=== PATIENT | female | born 1945 | race Caucasian/White ===

== ENCOUNTER 2024-01-08 12:53 | Outpatient (RCR) | payer OTHER, SELFPAY | END 2024-01-08 23:59 | disposition home or self-care (01) | LOC: RPT 12:53 | PROVIDERS: ATTENDING PHYSICIAN Neurological Surgery; FAMILY PHYSICIAN Family Medicine | DX: M53.3 Sacrococcygeal disorders, not elsewhere classified (principal); Z73.6 Limitation of activities due to disability | CPT/HCPCS: 97110; 97112; 97162 ==

== ENCOUNTER 2024-01-09 14:15 | Emergency (ER) | payer OTHER, SELFPAY ==
[2024-01-09 14:22] VITALS: BMI 31.1
[2024-01-09 14:24] VITALS: BP 92/56
--- NOTE | 2024-01-09 15:00 | ED.GENMED ---
History of Present Illness
General
Chief Complaint: Blood Pressure Problem
Source: patient and family (Daughter)
Exam Limitations: none
Time Seen by Provider: 01/09/24 14:33
Nursing documentation reviewed up to this point in time: agreed with
Travel History
Have you had any contact with someone who has COVID-19?: No
Do you have any symptoms of coronavirus? Fever > 100 degrees, chills, cough, shortness of breath, sore throat, loss of taste or smell, muscle aches, or headache?: No
History of Present Illness
History of Present Illness:
The patient is a 78-year-old female with a past medical history of atrial fibrillation on Eliquis who reports that she dropped a scissor onto her right foot about an hour prior to arrival. Patient reports she last took Eliquis this morning.
Patient reports she had squirting blood coming up from her right foot. She describes a large amount of bleeding at home. Her family brought her to urgent care where she had a suture placed to control the bleeding as well as a pressure dressing.
At urgent care, she dropped her blood pressure and was brought by ambulance to the ED. Patient reports that in the ambulance, she felt nauseous and passed out. Patient reports she still feels nauseous but denies any chest pain and shortness of
breath. Patient reports soreness of the top of her right foot, where the wound is.
Past History
Past History
ED Past Medical History: Arrthythmia (Atrial fib), HTN, Hypercholesterolemia and Hypothyroidism
ED Past Surgical History: Appendectomy, Cholecystectomy and Gynecological (Hysterectomy)
Social History
Tobacco: Non-smoker
Alcohol: Occasional
Drug: None
Personal:
Living: alone
Employment: Other
Family History
Family History: Other
Review of Systems
Review of Systems
Allergies reviewed?: Yes
All Other Systems: ROS reviewed and negative except as documented in HPI and ROS
Constitutional: Reports no symptoms
EENT: Reports no symptoms
Respiratory: Reports no symptoms
Cardiac: Reports syncope
ABD/GI: Reports nausea and diarrhea
: Reports no symptoms
Musculoskeletal: Reports muscle stiffness
Skin: Reports other
Neurological: Reports no symptoms
Endocrine: Reports no symptoms
Hematologic/Lymphatic: Reports no symptoms
Psychiatric: Reports no symptoms
Phy Exam
Physical Exam
Physical Exam:
Physical Exam
General: no apparent distress, not acutely ill
Neck: supple.
Heart: s1/s2 regular rate and rhythm,
Lungs: no acute respiratory distress. clear bilaterally
Abdomen: Soft, nontender
Neuro: alert and oriented. no focal neurological deficits
Skin: 1 cm laceration at top of right foot with a suture approximating wound. Bleeding well-controlled. Underlying hematoma
Psychiatric: well kept. interactive and cooperative
Extremities: Mild soft tissue tenderness dorsal aspect of right foot in the area of wound with underlying hematoma. Strong pulses of right foot. Good sensation in right lower extremity. No other areas of injury
Course
Orders/Labs/Results
Orders:
Orders
01/09/24 15:10
Electrocardiogram (*1) Urgent
Reason for Study: Fatigue / Weakness
EKG- Treatment ONCE
0.9% Sodium Chloride 1000 ml [Nss] 1,000 ml IV BOLUS
01/09/24 15:14
Basic Metabolic Panel Urgent
Complete Blood Count/With Diff Urgent
01/09/24 15:30
Tetanus/Diphth/Acelpertussis [Adacel] 0.5 ml IM .ONCE ONE
01/09/24 15:31
Ondansetron Injectable [Zofran] 4 mg IV NOW STA
01/09/24 15:34
Foot, Right 3 View [CR Foot - Right Min 3 Views] Urgent
Comment:
Reason For Exam: impalement
01/09/24 16:59
Type+Screen Urgent
BBK Wristband Number:
Comprehensive Metabolic Panel Urgent
Abnormal Lab Results
01/09/24
15:14
WBC 17.1 H 10^3/uL
(4.8-10.8)
RBC 3.35 L 10^6/uL
(4.20-5.40)
Hgb 10.7 L g/dL
(12.0-16.0)
Hct 30.3 L %
(37.0-47.0)
MCH 31.9 H pg
(27.0-31.0)
Abs Immat Gran (auto) 0.2 H 10^3/uL
(0-0.05)
Absolute Neuts (auto) 7.1 H 10^3/uL
(1.4-6.5)
Absolute Lymphs (auto) 8.7 H 10^3/uL
(1.2-3.4)
Absolute Monos (auto) 1.0 H 10^3/uL
(0.1-0.6)
Immature Gran % 0.9 H %
(0-0.5)
Neutrophils % 41.1 L %
(42.2-75.2)
Sodium 134 L mmol/L
(135-145)
Chloride 108 H mmol/L
(98-107)
Carbon Dioxide 13 L* mmol/L
(22-30)
BUN 36 H mg/dl
(7-17)
Creatinine 2.0 H mg/dL
(0.6-1.0)
Glucose 228 H mg/dl
(70-99)
01/09/24 16:14
Vital Signs
Initial and Last Documented VS:
Initial Vital Signs
Temp Pulse Resp BP Pulse Ox
97.5 F 70 28 92/56 100
01/09/24 14:24 01/09/24 14:24 01/09/24 14:24 01/09/24 14:24 01/09/24 14:24
Last Documented Vital Signs
Temp Pulse Resp BP Pulse Ox
97.5 F 70 28 92/56 100
01/09/24 14:24 01/09/24 14:24 01/09/24 14:24 01/09/24 14:24 01/09/24 14:24
MDM/Problems Addressed
Differential Diagnosis Includes:
Vasovagal episode, acute blood loss, cardiac arrhythmia
MDM/Problems Addressed:
Patient presents with acute hypotension and a syncopal episode after suffering bleeding from a right foot wound
Chronic conditions affecting care:
Given patient has A-fib is on Eliquis, she is at increased risk of bleeding
Acute Exacerbation and/or Progression of Chronic Illness: Arrhythmia
*Radiology
Radiology exam reviewed: preliminary read by ED provider (No acute fracture. Right foot x-ray x-ray reviewed by me) and radiology read reviewed
*Pulse Oximetry
Patient hypoxic: no
*EKG
Interpreted by ED Provider?: Yes
Interpretation: abnormal
Comparison EKG: no changes
Rate: normal
Rhythm: sinus
[place]: left axis deviation
Interval: normal interval
QRS Pattern: left bundle branch block
Ischemia: non-specific ST changes
*[employer] Interpretation
Rate: normal
Interpretation: normal
Rhythm: sinus
*Critical Care Note
Total Time (30-74mins, 75-104mins- exclusive of procedures): Not Applicable
Data Reviewed
Review of Other/Old Records Reveals: Testing (Cardiac echo reviewed from 05/2022 which showed normal EF)
Patient Management
Social determinants of health affecting care: Living situation and Strong social support
Update Note
Update Note:
Patient given IV fluids and feels better. Nausea treated with Zofran. I suspect patient's syncopal episode was related to blood loss and vasovagal reaction. Patient has had no chest pain or shortness of breath. Family would like to take patient
home and will stay with her tonight. Patient will limit weightbearing on right foot.
ED Attending Note
-
Portions of this chart may have been created with voice recognition software.� Occasional wrong word or��sound alike� substitutions may have occurred due to the inherent limitations of voice recognition software.
Discharge Plan
Departure
Patient Disposition: Home (Routine Discharge)
Date of Disposition: 01/09/24
Time of Disposition: 17:19
Patient with high blood pressure during this ER visit?: No
Condition: Good
Covid-19: Not Applicable
Discharge Problem:
Acute blood loss anemia, Laceration of foot, right, Syncope
Instructions: Laceration Repair With Stitches ED, Fainting, Adult ED
Prescriptions:
No Action
Eliquis 5 MG tablet
5 mg PO BID Qty: 60 11RF
simvastatin 40 MG tablet
40 mg PO Q48H
escitalopram oxalate 20 MG tablet
30 mg PO HS
levothyroxine 100 mcg Tablet
100 mcg PO DAILY
spironolactone 50 mg Tablet
50 mg PO DAILY
diltiazem HCl 120 mg Capsule,Extended Release 24 Hr
120 mg PO HS
sodium bicarbonate 650 mg Tablet
650 mg PO BID
hydralazine 50 mg Tablet
50 mg PO BID
acetaminophen [Tylenol] 325 mg Tablet
650 mg PO DAILYPRN PRN (Reason: mild pain)
olmesartan 20 mg Tablet
20 mg PO DAILY
Visbiome 112.5 billion cell Capsule
1 cap PO Q48H
dofetilide [Tikosyn] 125 mcg capsule
125 mcg PO BID
Referrals:
Tisha Alvarenga MD [Family Provider] -
Activity Restrictions/Additional Instructions:
Please do not take your Eliquis tonight and do not take it tomorrow morning. You can restart it tomorrow night. Please bear weight as little as possible on your right foot for about 48 hours to allow scabbing of the wound. Please change the
dressing every 1 to 2 days to check for bleeding and infection (redness, drainage of pus)
The suture in your wound will need to be removed in about 7 to 10 days.
Discharge Date and Time
Print Language: ARGENTINE
[2024-01-09 15:36] LABS: % Eosinophils 0.9 % (0-6); Hemoglobin 10.7 g/dL (12.0-16.0); Nucleated Red Blood Cells % 0 %
[2024-01-09 15:39] LABS: % Basophils 0.6 % (0-2); % Immature Granulocytes 0.9 % (0-0.5); % Lymphocytes 50.5 % (20.5-51.1); % Neutrophils 41.1 % (42.2-75.2); Absolute Basophils 0.1 10^3/uL (0-0.2); Absolute Eosinophils 0.2 10^3/uL (0-0.7); Absolute Immature Granulocytes 0.2 10^3/uL (0-0.05); Absolute Lymphocytes 8.7 10^3/uL (1.2-3.4); Absolute Neutrophils 7.1 10^3/uL (1.4-6.5); Hematocrit 30.3 % (37.0-47.0); Mean Corp Hgb Conc. 35.3 g/dL (33.0-37.0); Mean Corpuscular Hgb 31.9 pg (27.0-31.0); Mean Corpuscular Volume 90.4 fL (81.0-99.0); Mean Platelet Volume 10.3 fL (7.4-10.4); Platelet Count 345 10^3/uL (130-400); Red Blood Cell Count 3.35 10^6/uL (4.20-5.40); Red Cell Dist. Width 13.8 % (11.5-14.5); White Blood Cell Count 17.1 10^3/uL (4.8-10.8)
[2024-01-09 16:34] LABS: Blood Urea Nitrogen 36 mg/dl (7-17); Calcium 9.9 mg/dl (8.4-10.2); Carbon Dioxide 13 mmol/L (22-30); Chloride 108 mmol/L (98-107); Estimated Creatinine Clearance 20 ml/min; Glucose 228 mg/dl (70-99); Sodium 134 mmol/L (135-145); eGFR 25.41
[2024-01-09] MEDS: NSS 1000 IV (17:09)
[2024-01-09] MEDS: ADACEL 0.5 ML IM (17:10)
[2024-01-09] MEDS: ZOFRAN 4 MG IV (17:11)
[2024-01-09 17:18] VITALS: BP 121/59
[2024-01-09 17:44] LABS: ALT (SGPT) 25 U/L (0-35); AST (SGOT) 26 U/L (14-36); Albumin 2.8 g/dl (3.5-5.0); Alkaline Phosphatase 53 U/L (38-126); Blood Urea Nitrogen 37 mg/dl (7-17); Calcium 9.4 mg/dl (8.4-10.2); Carbon Dioxide 17 mmol/L (22-30); Chloride 111 mmol/L (98-107); Estimated Creatinine Clearance 20 ml/min; Glucose 98 mg/dl (70-99); Potassium 4.4 mmol/L (3.5-5.1); Sodium 135 mmol/L (135-145); Total Bilirubin 0.6 mg/dl (0.2-1.3); Total Protein 5.4 g/dl (6.3-8.2); eGFR 25.41
[2024-01-09 18:00] VITALS: BP 129/90
== END 2024-01-09 18:00 | disposition home or self-care (01) ==
LOC: EMR 14:15
PROVIDERS: EMERGENCY PHYSICIAN Emergency Medicine; FAMILY PHYSICIAN Family Medicine
DX: R55 Syncope and collapse (principal); D62 Acute posthemorrhagic anemia; S91.311A Laceration without foreign body, right foot, initial encounter; W20.8XXA Other cause of strike by thrown, projected or falling object, initial encounter; Z23 Encounter for immunization; I48.91 Unspecified atrial fibrillation; Z79.01 Long term (current) use of anticoagulants
CPT/HCPCS: 99285; 96374; 96361; 90471; 73630; 80048; 80053; 85025; 86850; 86900; 86901; 90715; 93005

== ENCOUNTER 2024-01-10 17:43 | Inpatient (IN) | payer OTHER, SELFPAY ==
[2024-01-10] VITALS (17 sets, daily range): BP systolic 98–145; BP diastolic 44–103; BMI 32.2; BMI 30.5
--- NOTE | 2024-01-10 11:56 | ED.MUSCINJ ---
HPI-Injury
General
Chief Complaint: Soft Tissue Injury
Source: patient
Exam Limitations: none
Time Seen by Provider: 01/10/24 11:53
Nursing documentation reviewed up to this point in time: agreed with
Travel History
Have you had any contact with someone who has COVID-19?: No
Do you have any symptoms of coronavirus? Fever > 100 degrees, chills, cough, shortness of breath, sore throat, loss of taste or smell, muscle aches, or headache?: No
History of Present Illness-Injury
Is this injury a work related problem?: No
Initial Injury comments:
This is a 78-year-old female with a past medical history of A-fib on Eliquis presenting emergency department today with concerns of a right foot wound. Patient was seen here in the emergency department yesterday for a puncture wound which she got
via her garden scissors after working in the garden. She was originally seen by urgent care who placed on sutures to help control bleeding however patient subsequently had a syncopal episode and so she presented to emergency department. Patient
states that today, she was feeling better and decided to try to bear weight on the foot when the bleeding returned and is poorly controlled with dressing. Patient denies any dizziness, lightheadedness, further syncopal episodes, chest pain,
shortness of breath, nausea or vomiting. Patient's Eliquis was held for a day, did not receive her dose today.
Past History
Past History
ED Past Medical History: Arrthythmia (Atrial fib), HTN, Hypercholesterolemia and Hypothyroidism
ED Past Surgical History: Appendectomy, Cholecystectomy and Gynecological (Hysterectomy)
Social History
Tobacco: Non-smoker
Alcohol: Occasional
Drug: None
Personal:
Living: alone
Employment: Other
Family History
Family History: Other
Review of Systems
Review of Systems
All Other Systems: ROS reviewed and negative except as documented in HPI and ROS
Phy Exam
Physical Exam
Physical Exam:
General: Patient is well appearing and in no acute distress; non-toxic
Skin: Warm and dry, there is a small hematoma along the dorsum of the right foot with [address], no drainage from the wound
Head: Normocephalic, atraumatic
Eyes: Sclera non-icteric. EOMs intact.
Cardiac: Regular rate, no murmurs, rubs, gallops
Peripheral Vascular: No lower extremity edema, 2+ dorsalis pedis pulses and posterior tibial pulses bilaterally. There is a hematoma along the dorsum of the right foot with [address] with active pulsation.
Pulm: Normal respiratory effort
Musculoskeletal: Tenderness palpation of the right foot and tenderness with movement of the toes
Neuro: CN II-XII intact, no focal neurologic deficits.
Psychiatric: Appropriate mood and affect.
Injury Course
Orders/Labs/Results
Orders:
Orders
01/10/24 12:41
Case Management Consult ONCE
Case Management Consult: VN/Home Care
01/10/24 Dinner
NPO
Reason for opting out of Computer Programmer Analyst order writing: Provider Decision
Allow oral meds: Yes
Allow clear liquids: No
Comment: NPO now- collision center manager to OR in 2-3 hours
01/10/24 15:44
K pad [Heat Application] As Directed
Apply heat therapy device to (location):: right leg (not directly to the left foot)
Device Frequency setting:: 20 minute cycles
Device temperature setting:: Low: 95 F (35 C)
01/10/24 15:56
Oxycodone/Acetaminophen [Percocet 5/325] 1 tablet PO Q4HPRN PRN
01/10/24 15:57
Acetaminophen [Tylenol] 500 mg PO Q4HPRN PRN
Diphenhydramine [Benadryl] 25 mg IM Q4HPRN PRN
01/10/24 16:21
HYDROmorphone [Dilaudid] 0.25 mg IV PACU-Q5MPRN PRN
HYDROmorphone [Dilaudid] 0.5 mg IV PACU-Q5MPRN PRN
Ondansetron Injectable [Zofran] 4 mg IV PACU-ONCEPRN PRN
01/10/24 16:22
Notify MD As Directed
Notify physician if: for SDS patients with known or suspected sleep obstructive sleep apnea, monitor in the
PACU.
Notify MD for any apneic/desaturation episodes
O2 Therapy [RESP] Urgent
Titrate/Wean O2 to maintain O2 sat greater than (%): 92
Special Instructions: -Provide supplemental oxygen to achieve O2 sat of 92% or greater.
-After 15 min, may wean O2 and discontinue if patient is able to maintain O2 sat of 92%
or greater during recovery period.
If patient is a discharge home, without oxygen therapy, notify anestheiologist if
unable to maintain O2 SAT of 92% or greater on room air for MD clearance.
01/10/24 16:30
0.9% Sodium Chloride 1000 ml [Nss] 1,000 ml IV PER PROTOCOL
01/10/24 16:32
PODIATRY CONSULT Urgent
Consulting Provider: Aishwarya Hernandez
Was physician already notified: Yes
01/10/24 16:58
C-Reactive Protein Urgent
Comment: ADDON
CMP [Comprehensive Metabolic Panel] Urgent
Complete Blood Count/With Diff Urgent
Erythrocyte Sed Rate Urgent
Comment: ADDON
01/10/24 17:17
Add On- LAB Urgent
Tests Added?: sed rate , crp
MRSA Screen Routine
SILVIA Source: Nose
Specimen Description:
Cefepime HCl [Maxipime] 1,000 mg IV NOW STA
01/10/24 17:23
Admit/Transfer Patient As Directed
Co-Sign Provider:
Level of Care: Inpatient admission
Assign to:: Telemetry
Physician / Group: percy ayala
Diagnosis: right foot laceration poss artery injury, afib on tikosyn
Reason for Telemetry: Other
Other Reason for Telemetry: qtc monitoring
Date to Stop Telemetry: 01/12/24
Time to Stop Telemetry: 11:00
Reason for Hospitalization: right foot laceration poss artery injury, afib on tikosyn
Expected length of stay greater than two midnights?: Yes
ELOS- Estimated Length of Stay in days: 3
I certify the patient meets the requirements for IP care: Yes
Code Status As Directed
Resuscitation Status: Full Code
01/10/24 17:28
Vancomycin [Vancocin] 1,500 mg 0.9% Sodium Chloride [Nss] 20 ml 0.9% Sodium Chloride 250 ml [Nss] 250 ml IV NOW
01/10/24 17:42
Blood Bank Products [* Blood Bank Products] Urgent
'sesar Orders: dr hernandez
Blood Bank Products: *Packed RBC Leuko(PRBC's)
Quantity: 1
Transfuse Today: Yes
Reason: Bleeding
Other reason: Or now
01/10/24 18:00
VANCOMYCIN Pharmacy to Dose [VANCOCIN Pharmacy to Dose] 1 each Pharmacy To Prepare [Call Pharmacy To Prepare] 0 ml IV PER PROTOCOL
01/11/24 18:00
Cefepime HCl [Maxipime] 500 mg IV Q24H
01/12/24 11:00
DC Protocol for Telemetry ONCE
Abnormal Lab Results
01/10/24
16:58
WBC 10.9 H 10^3/uL
(4.8-10.8)
RBC 2.48 L 10^6/uL
(4.20-5.40)
Hgb 7.8 L D g/dL
(12.0-16.0)
Hct 22.5 L %
(37.0-47.0)
MCH 31.5 H pg
(27.0-31.0)
MPV 10.5 H fL
(7.4-10.4)
Abs Immat Gran (auto) 0.1 H 10^3/uL
(0-0.05)
Absolute Lymphs (auto) 4.3 H 10^3/uL
(1.2-3.4)
Absolute Monos (auto) 0.8 H 10^3/uL
(0.1-0.6)
Sodium 133 L mmol/L
(135-145)
Chloride 109 H mmol/L
(98-107)
Carbon Dioxide 20 L mmol/L
(22-30)
BUN 34 H mg/dl
(7-17)
Creatinine 1.9 H mg/dL
(0.6-1.0)
Total Protein 5.4 L g/dl
(6.3-8.2)
Albumin 2.8 L g/dl
(3.5-5.0)
01/10/24 16:58
01/10/24 16:58
MDM/Problems Addressed
Differential Diagnosis Includes:
Differentials include laceration, hematoma, abrasion
MDM/Problems Addressed:
Right foot hematoma
Chronic conditions affecting care:
A-fib on Eliquis, CKD stage III, anxiety, GERD, hypothyroidism
Acute Exacerbation and/or Progression of Chronic Illness:
afib on eliquis
*Pulse Oximetry
Patient hypoxic: no
*Critical Care Note
Total Time (30-74mins, 75-104mins- exclusive of procedures): Not Applicable
Data Reviewed
Review of Other/Old Records Reveals: Records (Reviewed ER physician documentation from 01/09/24)
Source: patient
Prescriptions/Medications Considered But Not Given:
Considered medication for pain however patient declining pain medication at this time, declining Tylenol
Further Testing Considered But Not Given:
Considered further imaging of the foot however review of x-ray from yesterday
Patient Management
Escalation/DeEscalation of care consider admission/obs:
This is a 78-year-old female with a past medical history of A-fib on Eliquis presenting emergency department today with concerns of a right foot wound. Patient experience a puncture wounds to yesterday via her garden scissors. There was a suture
placed to help control bleeding urgent care. Today, when patient is ambulating, she would not stop bleeding from the suture site. On exam, she does have a hematoma to noted to the dorsum of the right foot, no active bleeding but there is a
pulsatile mass. Patient was seen by podiatry today in consult who recommends exploration and possible repair of the artery as well as I&D of the hematoma. Patient will take to the OR later today. Patient also be admitted for postop care and
further observation monitoring. Patient in agreement with plan. Patient NPO.
Update Note
Update Note:
1:36 pm--no progression of hematoma noted
2:00 pm-- no progression of hematoma noted however pulsing continues
ED Attending Note
-
Portions of this chart may have been created with voice recognition software.� Occasional wrong word or��sound alike� substitutions may have occurred due to the inherent limitations of voice recognition software.
Discharge Plan
Departure
Patient Disposition: Admit
Date of Disposition: 01/10/24
Time of Disposition: 16:32
Admit to: Med/Surg
Presentation/result/management discussed w/ accepting MD/DO: Hospitalist
Patient with high blood pressure during this ER visit?: Yes
Condition: Fair
Discharge Problem:
Hematoma of right foot
Interventions
Interventions:
*Risk Screen - Suicide Last Done: 01/10/24 11:38
*General Assessment Last Done: 01/10/24 11:38
*Neglect/Abuse Screening Last Done: 01/10/24 11:38
ED- Fall Risk Assessment Last Done: 01/10/24 11:38
*ED COVID-19 Vaccine History Last Done: 01/10/24 11:38
*Nursing Disposition Last Done: 01/10/24 18:10
ED-Musculoskeletal Assessment Last Done: 01/10/24 11:38
ED-Skin Assessment Last Done: 01/10/24 16:20
Discharge Date and Time
Discharge Date/Time: 01/10/24 18:15
--- NOTE | 2024-01-10 13:16 | CM ---
CM met with patient in room with family. Patient's daughter is a provider at [facility] and is requesting placement there. CM explained that patient would need to be accepted clinically and also insurance authorization would need to be obtained.
Daughter stated that if needed they would private pay for SNF.
Patient adamantly refused placement. Patient would be agreeable to home care, but refused private pay CLUB MANAGER care. CM is pending further clinical outcome for discharge recommendations.
--- NOTE | 2024-01-10 16:02 | CON.MD ---
Consultation - Medical
-
Consulted by ED 01/10/2024 at 1410, seen at 1510
CC / HPI / ROS
-
HPI: This is a 78 year old female who presented to the ED yesterday after sustaining an injury to her right foot when she dropped garden blanca on her foot that penetrated through the shoe. She was seen by urgent care where bleeding was stopped with
suture placed through the area of laceration. She was give tetanus booster and dressing applied. She presented to ED as well with pain and bleeding and a vagal episode. Today she returned to the Ed as result of pain and was unable to walk on her
right foot. I was called by ED to evaluate for a pulsatile mass to the right foot with some expansion.
Past History
ED Past Medical History: Arrthythmia (Atrial fib), HTN, Hypercholesterolemia and Hypothyroidism
ED Past Surgical History: Appendectomy, Cholecystectomy and Gynecological (Hysterectomy)
Social History
Tobacco: Non-smoker
Alcohol: Occasional
Drug: None
Personal:
Living: alone
Employment: Other
Family History
Family History:reviewed and non contributory
Review of Systems
Review of Systems
Allergies reviewed?: Yes
All Other Systems: ROS reviewed and negative except as documented in HPI and ROS
Constitutional: Reports no symptoms
EENT: Reports no symptoms
Respiratory: Reports no symptoms
Cardiac: Reports syncope
ABD/GI: Reports nausea and diarrhea
: Reports no symptoms
Musculoskeletal: Reports muscle stiffness
Skin: Reports other
Neurological: Reports no symptoms
Endocrine: Reports no symptoms
Hematologic/Lymphatic: Reports no symptoms
Psychiatric: Reports no symptoms
ALLERGIES
Darvon vomiting Drug Allergy Active
Oxycodone oxycodone itching Non Drug Allergy Active
Amlodipine Amlodipine fatigue Non Drug Allergy Active
Atenolol Atenolol fatigue Non Drug Allergy Active
meperidine Demerol([facility] Code:[address]-23) vomiting Drug Allergy Active
lansoprazole Lansoprazole([facility] Code:[address]-24) diarrhea Drug Allergy Active
fentanyl Fentanyl([facility] Code:[address]-33) vomiting Drug Allergy Active
lisinopril Lisinopril([facility] Code:[address]-17) cough Drug Allergy Active
Codeine codeine vomiting Non Drug Allergy Active
Darvon
oxycodone
Amlodipine
Atenolol
Demerol
Lansoprazole
Fentanyl
Lisinopril
codeine
MEDICATIONS
Sodium Bicarbonate 650 MG 2 tablet Orally Twice a Day for 90 days Active
hydrALAZINE HCl 100 MG TAKE 1 TABLET BY MOUTH TWICE DAILY WITH FOOD for 90 Active
Olmesartan Medoxomil 20 MG TAKE 1 TABLET BY MOUTH ONCE DAILY for 90 Active
Escitalopram Oxalate 20 MG 1.5 tab to equal 30 mg Orally Once a day for 30 day(s) Active
dilTIAZem HCl ER 120 MG 1 capsule Orally Once a day for 90 days Jul, Active
ZyrTEC 10 MG 1 tablet Orally Once a day for 30 day(s) Active
Voltaren 1 % as directed Externally Active
Fluticasone Propionate 50 MCG/ACT 1 spray in each nostril Nasally PRN prn Active
Eliquis 5 MG 1 tablet Orally Twice a day for 90 days Jun, Active
Simvastatin 40 MG 1 tablet in the evening Orally every other day for 30 days Active
Spironolactone 50 MG 1 tablet Orally Once a day Active
Tikosyn 125 MCG 1 capsule Orally Twice a day for 90 days Per MAHNA[facility] [place], pt is ok to take Lexapro with [email or web address] Active
Levothyroxine Sodium 100 MCG 1 tablet in the morning on an empty stomach Orally Once a Day for 30 day(s) Active
Sodium Bicarbonate 650 MGHOSPIRAComminsHeidi
Vital Signs / Labs
-
Vital Signs and Labs:
Temp Pulse Resp BP Pulse Ox
99.4 F 63 18 123/59 99
01/10/24 11:38 01/10/24 11:38 01/10/24 11:38 01/10/24 15:00 01/10/24 15:30
Physical Exam
Vital Signs
Vital Signs
Temp Pulse Resp BP Pulse Ox
99.4 F 63 18 123/59 99
01/10/24 11:38 01/10/24 11:38 01/10/24 11:38 01/10/24 15:00 01/10/24 15:30
Physical Exam
General: AAO x 3, anxious but in NAD
Extremities: RLE with palpable DPA and HEAD CHEF +2/4, Pulsatile mass visible to the right 1st interspace. She is guarded but appears to be able to move her great toe, denies numbness to the toes. There is no erythema, or warmth. Edema localized to the
area of the laceration/suture repair. RLE cool to touch compared to the LLE
Neurological: Hyperaesthesia to the right foot
Assessemnt/Plan
-
1-Traumatic laceration right foot with suspected laceration of the terminal branch of the DPA (1st met artery) to the 1st interspace
2-CKD stage 3B
3-Afib on eliquis
--Patient will require exploration and possible repair of the artery as well as I&D of the hematoma. Continue NPO for now, pt added to OR schedule rach. Will obtain labs, check CBC, T&S, pain meds and will also require po abt and admit post op for
observation and monitoring
--- NOTE | 2024-01-10 16:51 | HPS.HSE ---
Addendum entered and electronically signed by Clayton Avalos DO 01/10/24 17:40:
Vasovagal syncope -patient passed out in the ambulance today. Had warning symptoms of nausea and seeing spots in her vision.
Original Note:
Family Physician
<JULIA Trujillo - Last Filed: 01/10/24 17:23>
-
Family Physician: Yvonne George
Chief Complaint
<JULIA Trujillo - Last Filed: 01/10/24 17:23>
-
Right foot pain, increased bleeding
History of Present Illness
78-year-old female who dropped a garden blanca on her anterior foot between first and second metatarsal foot that penetrated through her shoe. She was seen by urgent care yesterday 01/09/2024 and had suture placed to the area of the laceration and
sent to the ER via ambulance due to uncontrolled bleeding. While in the ED a hematoma formed bleeding resolved and the patient was given a tetanus booster. She presented to the emergency department today due to inability to walk on her right foot
as well due to bleeding bleeding and a vagal episode. She has a past medical history of paroxysmal A-fib/atrial flutter, HTN, HLD, CKD 4 hypothyroidism, sleep apnea uses nasal CPAP, GERD, hiatal hernia, fibromyalgia, osteoarthritis, breast cancer
with left radical mastectomy, thyroid cancer status post thyroidectomy, anxiety, depression, ABSENTEE-SHAWNEE, LBBB.
Medical History
<JULIA Trujillo - Last Filed: 01/10/24 17:23>
Past Medical History
Past Medical History: Reports Other
Additional Past Medical History:
paroxysmal A-fib/atrial flutter
LBBB.
HTN
HLD
CKD 4
Hypothyroidism
Sleep apnea uses nasal CPAP
GERD
hiatal hernia
fibromyalgia
osteoarthritis
breast cancer with left radical mastectomy
thyroid cancer status post thyroidectomy
anxiety
depression
ABSENTEE-SHAWNEE
Past Surgical History: Reports Other
Additional Past Surgical History:
Appendectomy
Cholecystectomy
Hysterectomy
Breast cancer with left radical mastectomy
Thyroid cancer status post thyroidectomy
Hysterectomy
Cervical laminectomy
PVI ablation 08/12/2019
Cardioversions October 2019 x 2
right great toe metartarsal repair with plates screws reports 10 years ago for' arthritis and foot' at [facility]
Social History
Tobacco: Non-smoker
Alcohol: None
Drug: None
Personal: Single
Living: Alone
Employment: Retired
Family History
Family History: Not pertinent
Allergies / Home Medications
Allergies reflects when Allergies were last updated in [employer].
Home Medications with original date entered in [employer]
Allergy/Medication List:
Allergies
Allergy/AdvReac Type Severity Reaction Status Date / Time
amlodipine Allergy fatigue Verified 01/09/24 14:22
atenolol Allergy fatigue Verified 01/09/24 14:22
codeine Allergy Nausea / Verified 01/09/24 14:22
Vomiting
fentanyl Allergy Nausea / Verified 01/09/24 14:22
Vomiting
lansoprazole Allergy diarrhea Verified 01/09/24 14:22
lisinopril Allergy cough Verified 01/09/24 14:22
meperidine [From Demerol] Allergy Nausea / Verified 01/09/24 14:22
Vomiting
oxycodone [From Percocet] Allergy Nausea / Verified 01/09/24 14:22
Vomiting
and itching
propoxyphene [From Darvon] Allergy Nausea / Verified 01/09/24 14:22
Vomiting
Home Medications
apixaban 5 mg tablet (Eliquis) 5 mg PO BID #60 tabs 04/06/19
simvastatin 40 mg tablet 40 mg PO Q48H@1700 High cholesterol 08/30/19
escitalopram oxalate 20 mg tablet 30 mg PO HS Mental Health/Anxiety 08/13/21
levothyroxine 100 mcg tablet 100 mcg PO DAILY Thyroid 05/07/22
spironolactone 50 mg tablet 50 mg PO DAILY Blood pressure 05/07/22
diltiazem HCl 120 mg capsule,24 hr,extended release 120 mg PO HS Heart disease/condition 05/08/22
hydralazine 50 mg tablet 50 mg PO BID 05/27/23
sodium bicarbonate 650 mg tablet 1,300 mg PO BID 05/27/23
dofetilide 125 mcg capsule (Tikosyn) 125 mcg PO BID 07/30/23
olmesartan 20 mg tablet 20 mg PO DAILY 07/30/23
cetirizine 10 mg tablet (Zyrtec) 10 mg PO DAILY 01/10/24
Review of Systems
<JULIA Trujillo - Last Filed: 01/10/24 17:23>
-
History Source: Patient and Family (Daughter and son at bedside)
A 12 point ROS was completed and negative except as noted: Yes
Constitutional: Denies Fever or Chills
EENT: Denies Sore Throat or Runny Nose
Respiratory: Denies Cough or Trouble Breathing
Cardiac: Reports Other (Had vasovagal syncope at home with bleeding foot); Denies Chest Pain or Palpitations
Abdomen/GI: Denies Abdominal Pain, Nausea, Vomiting, Diarrhea, Bloody Stools or Black Stools
: Denies Dysuria, Frequency, Flank Pain, Incontinence or Difficulty Voiding
Musculoskeletal: Reports Joint Swelling (Mild swelling over right anterior foot between first and second anterior metatarsal, single suture in place no surrounding erythema or drainage); Denies Joint Pain
Skin: Denies Itching or Rash
Neurological: Denies Dizzy or Headache
Endocrine: Reports No Symptoms
Hematologic/Lymphatic: Reports No Symptoms
Psych: Reports Calm
Physical Exam
<JULIA Trujillo - Last Filed: 01/10/24 17:23>
Vital Signs
Vital Signs
Temp Pulse Resp BP Pulse Ox
99.4 F 63 18 122/83 97
01/10/24 11:38 01/10/24 11:38 01/10/24 11:38 01/10/24 16:21 01/10/24 16:30
Physical Exam
General: Comfortable and Conversant
HEENT: NormoCephalic, Anicteric, PERRLA, Lamy Conjunctivae and No Ptosis
Respiratory: Clear; No Wheezes, Rales or Rhonchi
Cardiac: S1/S2 and Regular Rhythm; No Murmur, Rub or Gallop
Breast: Deferred by me
GI: Soft, Non Tender, Non Distended, Normal Bowel Sounds and No Hepatosplenomegaly
Genito-urinary: Deferred by me
Musculoskeletal: No Clubbing, No Cyanosis and Other (Mild swelling over right anterior foot between first and second anterior metatarsal, single suture in place no surrounding erythema or drainage); No Edema, Left Upper Extremity, Edema, Right Upper
Extremity, Edema, Left Lower Extremity or Edema, Right Lower Extremity
Skin: Warm, Dry and Other (Mild swelling over right anterior foot between first and second anterior metatarsal, single suture in place no surrounding erythema or drainage); No Rash or Jaundice
Neuro: AO x 3, No Motor Deficits, Nonfocal/grossly intact and No Sensory Deficits; No Slurred Speech, Facial Droop or Tremors
Psych: Calm
Data Reviewed
<JULIA Trujillo - Last Filed: 01/10/24 17:23>
-
Diagnostic Radiology: Report Reviewed by me
Lab Data: Labs Reviewed by me
Impression/Plan
<JULIA Trujillo - Last Filed: 01/10/24 17:23>
-
Impression/plan:
Admit to telemetry
#Right foot hematoma secondary to traumatic laceration with garden blanca
-Had sutured at urgent care yesterday 01/09/2024
# Hx plates and hardware in right first metatarsal
123/83, HR 62, 99.4F
-Was given tetanus booster yesterday 01/09/2024
-N.p.o. for OR today for exploration and possible repair of first metatarsal artery and I&D of hematoma
-Consult Podiatry was seen by Dr. Hernandez in the ER
-Last dose Eliquis was 01/09/2024 at 8 AM
-Pain control
-IV Zofran as needed
-IV vancomycin renal dose, IV cefepime 1 g now then 500 Q24 renal dose
-Follow CBC, CMP, sed rate, CRP
-Check nasal MRSA swab
#A-fib/atrial flutter-paroxysmal
-Hold current Eliquis last dose was 01/09/2024 at 8 AM
-Continue Tikosyn 125 mcg p.o. twice daily, diltiazem 120 mg at bedtime
-Monitor QTc on telemetry
EKG 01/09/2024: Sinus rhythm with PACs, LBBB stable since July 2023
#CKD stage 4
-Patient follows with Dr. Robertson
-Continue sodium bicarb 1300 mg p.o. twice daily
-Follow CMP
#HTN�benign
12283
-Continue olmesartan 20 mg daily, hydralazine 50 mg p.o. twice daily with hold parameters
-Hold spironolactone 50 mg daily
#HLD
-Continue simvastatin 40 mg every 48 H
#GERD
#Hiatal hernia
No current meds
#Sleep apnea-patient uses fluctuating nasal CPAP
#Hypothyroidism
#thyroid cancer status post thyroidectomy
-Continue levothyroxine 100 mcg daily
#Anxiety/depression
-Continue Lexapro 30 mg at bedtime
#Seasonal allergies
-Continue Zyrtec 10 mg daily
#Obesity due to excess calorie consumption�BMI 32.2 kg
Recommend low-fat diet, and weight loss
Other PMH:
fibromyalgia
osteoarthritis
breast cancer with left radical mastectomy
ABSENTEE-SHAWNEE
DVT prophylaxis
Hold current Eliquis for surgery
Full code for surgery but then after patient request DNR
<Clayton Avalos, DO - Last Filed: 01/10/24 17:38>
-
Impression/plan:
Admit to telemetry
#Right foot hematoma secondary to traumatic laceration with garden blanca
-Had sutured at urgent care yesterday 01/09/2024
# Hx plates and hardware in right first metatarsal
12383, HR 62, 99.4F
-Was given tetanus booster yesterday 01/09/2024
-N.p.o. for OR today for exploration and possible repair of first metatarsal artery and I&D of hematoma
-Consult Podiatry was seen by Dr. Hernandez in the ER
-Last dose Eliquis was 01/09/2024 at 8 AM
-Pain control
-IV Zofran as needed
-IV vancomycin renal dose, IV cefepime 1 g now then 500 Q24 renal dose
-Follow CBC, CMP, sed rate, CRP
-Check nasal MRSA swab
#A-fib/atrial flutter-paroxysmal
-Hold current Eliquis last dose was 01/09/2024 at 8 AM
-Continue Tikosyn 125 mcg p.o. twice daily, diltiazem 120 mg at bedtime
-Monitor QTc on telemetry
EKG 01/09/2024: Sinus rhythm with PACs, LBBB stable since July 2023
#CKD stage 4
-Patient follows with Dr. Robertson
-Continue sodium bicarb 1300 mg p.o. twice daily
-Follow CMP
#HTN�benign
122/83
-Continue olmesartan 20 mg daily, hydralazine 50 mg p.o. twice daily with hold parameters
-Hold spironolactone 50 mg daily
#HLD
-Continue simvastatin 40 mg every 48 H
#GERD
#Hiatal hernia
No current meds
#Sleep apnea-patient uses fluctuating nasal CPAP
#Hypothyroidism
#thyroid cancer status post thyroidectomy
-Continue levothyroxine 100 mcg daily
#Anxiety/depression
-Continue Lexapro 30 mg at bedtime
#Seasonal allergies
-Continue Zyrtec 10 mg daily
#Obesity due to excess calorie consumption�BMI 32.2 kg
Recommend low-fat diet, and weight loss
Other PMH:
fibromyalgia
osteoarthritis
breast cancer with left radical mastectomy
ABSENTEE-SHAWNEE
DVT prophylaxis
Hold current Eliquis for surgery
Full code for surgery but then after patient request DNR
Attending note:
Patient seen and examined and discussed with YESENIA Montoya, and I agree with her note above.
Gen-AAOx3, NAD, obese
HEENT-NC, AT, anicteric, clear oral mm
Neck-supple
CV-reg, no M, +S1/S2
Lungs-clear B/L
Abd-soft, NT, ND
Ext-no edema
Musculoskeletal-no cyanosis, clubbing. Right foot swelling with bleeding.
Skin-warm and dry
Neuro-grossly non-focal
Psych-calm, cooperative
Acute traumatic right foot laceration -hematoma formation in the setting of anticoagulation with Eliquis. Last dose of Eliquis was yesterday morning. Currently n.p.o. for hematoma evacuation in the OR today. Podiatry consulted. Start
broad-spectrum antibiotics. Hold Eliquis.
Admit to telemetry.
Acute blood loss anemia -in the setting of anticoagulation with Eliquis and right foot trauma, hematoma. Baseline hemoglobin unknown but was 12.3 in July. Hemoglobin yesterday 10.7, 7.8 today. Monitor closely and transfuse if hemoglobin
continues to drop.
Right first MTP prosthesis -surgery performed about 10 years ago according to the patient at [facility], indication for surgery was arthritis. X-rays shows suspicion of loosening of the stem of the prosthesis extending into the base of
the proximal phalanx. No radiographic evidence for acute fracture or acute osteomyelitis. I spoke with Dr. Hernandez, she is not concerned for osteomyelitis but is more concerned for the implant causing pressure to her neurovascular structures.
Chronic hyponatremia -sodium 133. This is near her baseline.
Paroxysmal atrial fibrillation -hold Eliquis as above. Continue Tikosyn.
CKD 4 -renal function at baseline.
Essential hypertension -stable.
Hyperlipidemia -on simvastatin.
Hypothyroidism -continue Synthroid.
Obesity due to excess calories
FRANCES -uses CPAP.
DNR
Updated family at the bedside.
[2024-01-10 17:10] LABS: % Basophils 0.3 % (0-2); % Eosinophils 0.9 % (0-6); % Immature Granulocytes 0.5 % (0-0.5); % Lymphocytes 39.3 % (20.5-51.1); % Monocytes 7.7 % (1.7-9.3); % Neutrophils 51.3 % (42.2-75.2); Absolute Eosinophils 0.1 10^3/uL (0-0.7); Absolute Immature Granulocytes 0.1 10^3/uL (0-0.05); Absolute Lymphocytes 4.3 10^3/uL (1.2-3.4); Absolute Monocytes 0.8 10^3/uL (0.1-0.6); Absolute Neutrophils 5.6 10^3/uL (1.4-6.5); Hematocrit 22.5 % (37.0-47.0); Hemoglobin 7.8 g/dL (12.0-16.0); Mean Corp Hgb Conc. 34.7 g/dL (33.0-37.0); Mean Corpuscular Hgb 31.5 pg (27.0-31.0); Mean Corpuscular Volume 90.7 fL (81.0-99.0); Mean Platelet Volume 10.5 fL (7.4-10.4); Nucleated Red Blood Cells % 0 %; Platelet Count 249 10^3/uL (130-400); Red Blood Cell Count 2.48 10^6/uL (4.20-5.40); Red Cell Dist. Width 13.9 % (11.5-14.5); White Blood Cell Count 10.9 10^3/uL (4.8-10.8)
[2024-01-10 17:27] LABS: ALT (SGPT) 23 U/L (0-35); AST (SGOT) 25 U/L (14-36); Albumin 2.8 g/dl (3.5-5.0); Alkaline Phosphatase 48 U/L (38-126); Blood Urea Nitrogen 34 mg/dl (7-17); Calcium 9.5 mg/dl (8.4-10.2); Carbon Dioxide 20 mmol/L (22-30); Chloride 109 mmol/L (98-107); Estimated Creatinine Clearance 22 ml/min; Glucose 80 mg/dl (70-99); Potassium 4.4 mmol/L (3.5-5.1); Sodium 133 mmol/L (135-145); Total Bilirubin 0.6 mg/dl (0.2-1.3); Total Protein 5.4 g/dl (6.3-8.2); eGFR 27.03
[2024-01-10] MEDS: MAXIPIME 1000 MG IV (17:45)
[2024-01-10] MEDS: VANCOCIN 300 ML IV (17:48)
[2024-01-10] MEDS: VANCOCIN 300 MG IV (17:48)
[2024-01-10 17:56] LABS: C-Reactive Protein < 5.00 mg/L (0.0-10.00)
--- NOTE | 2024-01-10 18:07 | PHA.VAN.IN ---
Assessment
- Assessment
Renal Function: Appears elevated from baseline
Maximum Temperature: 99.4
Concomitant Antimicrobials: cefepime
Plan
- Plan
Initial / Loading Dose: 1500mg 01/09 17:48
Maintenance Regimen: dose by level
Monitorin/20 am
Pharmacokinetics Vancomycin I
- -
Patient Age: 78
Patient Sex: Female
Vancomycin Day #: 1
Indication: Skin And Soft Tissue
Requesting Provider: Olya Montoya NP
Pertinent Antimicrobial Allergies:
no pertinent allergies
Height / Weight:
Height 4 ft 11 in
Actual Weight 72.3 kg
Pertinent Past Medical History: foot wound with garden blanca
- Vital Signs / Lab Results
Temp Pulse Resp BP Pulse Ox
99.4 F 63 18 134/67 96
01/10/24 11:38 01/10/24 11:38 01/10/24 11:38 01/10/24 17:00 01/10/24 17:15
Lab Results - Hematology
01/10/24 01/10/24
16:23 16:58
WBC Cancelled 10.9 H
Lab Results - Chemistry
01/10/24
16:58
BUN 34 H
Creatinine 1.9 H
Estimated Creat Clear 22
Albumin 2.8 L
[2024-01-10 18:21] LABS: Erythrocyte Sed Rate 13 mm/hour (0-20)
--- NOTE | 2024-01-10 20:37 | W.SUR.POST ---
Surgical Immediate Post Op
Note
Pre Op Diagnosis: Laceration and arterial injury !st dorsal met artery) right foot with hematoma right foot
Post Op Diagnosis: same
Procedure Performed: Exploration and evacuation of right foot hematoma with ligation of vessel
Primary Surgeon: Brandon
Secondary Surgeons: N/A
Anesthesia: IV sedation w/local block of 1%lido plain 10cc and 5 cc 0.5% sukhi plain intra op
Estimated Blood Loss: 100 mL
Fluids: none
Drains/Shunts: none
Specimens/Cultures: wound swab taken
Doppler/Duplex/Angio (Y/N): N
Complications: None
Operative Findings:
hematoma and debris to the right foot, dilated and lacerated artery within fascia right foot- ligated and appears to be stable without further arterial bleeding
[2024-01-10 21:58] LABS: Hematocrit 22.8 % (37.0-47.0); Hemoglobin 8.1 g/dL (12.0-16.0)
--- NOTE | 2024-01-10 22:10 | PTCARENOTE ---
Pt received from PACU in bed. AAOx3, pleasant. Telemetry = SR w/prolonged QT - QTc 465 (QTc monitoring in place via tele per order). Oriented to surroundings and plan of care discussed. Admission and assessment completed. NV check WNL, +tibial,
+sensation, +movement. R foot w/bulky dressing and surgical shoe in place. Pt voided large amount on bedpan, stress incontinence w/peripad in place. Tolerated boxed lunch provided. Offers no complaints. Call moscoso within reach. Plan of care
ongoing.
CLINIC SCHEDULER covering house contacted regarding active order for PRBCs. Ordered H/H --> Hgb/Hct 8.1/22.8. Instructed no transfusion necessary at present. Will monitor for signs/symptoms of bleeding. AM labs in place.
--- NOTE | 2024-01-10 22:15 | RESPNOTE ---
Patient refused hospital CPAP, family to bring own equipment in tomorrow. RN aware.
[2024-01-10] MEDS: CARDIZEM CD 120 MG PO (22:40)
[2024-01-10] MEDS: TIKOSYN 125 MCG PO (22:41)
[2024-01-10] MEDS: LEXAPRO 30 MG PO (22:45)
[2024-01-10] MEDS: SODIUM BICARBONATE 1300 MG PO (22:45)
[2024-01-10] MEDS: APRESOLINE 50 MG PO (22:45)
[2024-01-11] VITALS (10 sets, daily range): BP systolic 101–133; BP diastolic 50–66; PULSE 74
[2024-01-11] MEDS: SYNTHROID 100 MCG PO (04:52)
[2024-01-11 05:21] LABS: % Basophils 0.1 % (0-2); % Immature Granulocytes 0.6 % (0-0.5); % Monocytes 1.7 % (1.7-9.3); % Neutrophils 80.6 % (42.2-75.2); Absolute Immature Granulocytes 0.1 10^3/uL (0-0.05); Absolute Lymphocytes 1.5 10^3/uL (1.2-3.4); Absolute Monocytes 0.2 10^3/uL (0.1-0.6); Absolute Neutrophils 7.3 10^3/uL (1.4-6.5); Hematocrit 21.2 % (37.0-47.0); Hemoglobin 7.4 g/dL (12.0-16.0); Mean Corp Hgb Conc. 34.9 g/dL (33.0-37.0); Mean Corpuscular Hgb 31.6 pg (27.0-31.0); Mean Corpuscular Volume 90.6 fL (81.0-99.0); Mean Platelet Volume 10.1 fL (7.4-10.4); Nucleated Red Blood Cells % 0 %; Platelet Count 225 10^3/uL (130-400); Red Blood Cell Count 2.34 10^6/uL (4.20-5.40); Red Cell Dist. Width 13.7 % (11.5-14.5)
[2024-01-11 05:45] LABS: Blood Urea Nitrogen 32 mg/dl (7-17); Calcium 9.7 mg/dl (8.4-10.2); Carbon Dioxide 18 mmol/L (22-30); Chloride 110 mmol/L (98-107); Estimated Creatinine Clearance 21 ml/min; Glucose 142 mg/dl (70-99); Sodium 136 mmol/L (135-145); eGFR 27.03
--- NOTE | 2024-01-11 07:50 | PHA.VAN.FU ---
Vancomycin Assessment / Plan
- Assessment
Renal Function: Stable
WBC's are: Trending Down
In the past 24 hrs, patient has been: Afebrile
Concomitant Antimicrobials: cefepime
- Assessment - Therapeutic Drug Monitoring
Random Level: 15 - drawn ~11H after 1500mg loading dose
- Dosing Plan
Dosing by Level: Re-dose today (Vanc 750mg)
- Monitoring Plan
Random Level: 01/11 0600
- Follow Up
Pharmacy will continue to follow.
Vancomycin Follow UP
- -
Patient Age: 78
Patient Sex: Female
Vancomycin Day #: 2
Indication: Skin And Soft Tissue
Requesting Provider: Olya Montoya NP
Pertinent Antimicrobial Allergies:
no pertinent antibiotic allergies
Height / Weight:
Height 4 ft 11 in
Actual Weight 68.549 kg
Pertinent Past Medical History: CKD
- Vital Signs / Lab Results
Temp Pulse Resp BP Pulse Ox
97.9 F 59 16 115/55 99
01/11/24 03:55 01/11/24 03:55 01/11/24 03:55 01/11/24 03:55 01/11/24 03:55
Lab Results - Hematology
01/10/24 01/10/24 01/11/24
16:23 16:58 04:54
WBC Cancelled 10.9 H 9.0
Lab Results - Chemistry
01/10/24 01/11/24
16:58 04:54
BUN 34 H 32 H
Creatinine 1.9 H 1.9 H
Estimated Creat Clear 21
Albumin 2.8 L
Therapeutic Drug Monitoring
Random Vancomycin 15.0 ug/ml 01/11/24 04:54
--- NOTE | 2024-01-11 08:10 | W.PN.UPDATE ---
Update Note
Progress Note Update
S/P Evac hematoma right foot and lig of vessel right foot
Pt denies pain. She is feeling weak and tired
Dressing taken down and there is min blood to the dressing- no return of pulsatile mass.
Foot redressed w/sterile dressing- she is to leave intact and see me as outpt in 4-5days
Will need 1 unit transfused. DC home once able.
Limited WB right foot for transfers and up to 100 feet for now.
Post op shoe pending-
--- NOTE | 2024-01-11 08:13 | W.PN.HOSP.TC ---
Addendum entered and electronically signed by Shilo Marcelo MD 01/11/24 14:18:
I discussed case with Dr. Hernandez (commissioning specialist) who mentioned that it is okay to resume patient's Eliquis tomorrow morning.
Original Note:
Today's Communication/Plan
-
Eliquis on hold for now
1 unit blood transfusion; recheck CBC later today to assess for improvement in hemoglobin
Appreciated ID evaluation and recommendations
PT/OT, and SNF placement
Assessment / Plan
Assessment / Plan
Physical Exam
Gen-AAOx3, NAD, obese
HEENT-NC, AT, anicteric, clear oral mm
Neck-supple
CV-reg, no M, +S1/S2
Lungs-clear B/L
Abd-soft, NT, ND
Ext-no edema
Musculoskeletal-no cyanosis, clubbing. Right foot swelling with jessica compression wrap
Skin-warm and dry
Neuro-grossly non-focal
Psych-calm, cooperative

Assessment/Plan
#Right foot hematoma secondary to traumatic laceration with garden blanca
# Hx plates and hardware in right first metatarsal
-Had sutured at urgent care on 01/09/2024
-Was given tetanus booster on 01/09/2024
-Podiatry Dr. Hernandez took patient to the OR on 01/11/24 to ligate a vessel and evacuate hematoma both on the right foot
-Consulted Podiatry, was seen by Dr. Hernandez
-Last dose Eliquis was 01/09/2024 at 8 AM
-Livestock [employer] Dr. Hernandez advised to hold the Eliquis for now
-Limited weight-bearing of the right foot for transfers and up to 100 feet for now.
-Post op shoe pending (as per podiatry)
-Pain control as needed
-Consulted ID, recommendations appreciated: continue Vancomycin, Cefepime and Flagyl for now
#Right first MTP prosthesis
-Surgery performed about 10 years ago according to the patient at [facility], indication for surgery was arthritis. X-rays shows suspicion of loosening of the stem of the prosthesis extending into the base of the proximal phalanx. No
radiographic evidence for acute fracture or acute osteomyelitis. Dr. Avalos spoke with Dr. Hernandez (commissioning specialist), she is not concerned for osteomyelitis but is more concerned for the implant causing pressure to her neurovascular structures.
#A-fib/atrial flutter-paroxysmal -- on home Eliquis
-CHADSVASC is 4
-Hold current Eliquis (last dose was 01/09/2024 at 8 AM) -- once commissioning specialist Dr. Hernandez clears for resuming the Eliquis, will then resume the Eliquis
-Continue Tikosyn 125 mcg p.o. twice daily, diltiazem 120 mg at bedtime
-Monitor QTc on telemetry
EKG 01/09/2024: Sinus rhythm with PACs, LBBB stable since July 2023
#Acute blood loss anemia
-Continue to hold Eliquis/anticoagulation for now
-1 unit blood transfusion for January 11, 2024
-In the setting of anticoagulation with Eliquis and right foot trauma, hematoma. Baseline hemoglobin unknown but was 12.3 in July. Monitor closely and transfuse if hemoglobin continues to drop.
#Vasovagal syncope
-patient passed out in the ambulance on January 11, 2024. Had warning symptoms of nausea and seeing spots in her vision.
-Suspected from acute trauma
#Chronic hyponatremia
-sodium 133. This is near her baseline.
#CKD stage 4
-Patient follows with Dr. Robertson
-Continue sodium bicarb 1300 mg p.o. twice daily
-Follow CMP
#HTN�benign
122/83
-Continue olmesartan 20 mg daily, hydralazine 50 mg p.o. twice daily with hold parameters
-Hold spironolactone 50 mg daily
#HLD
-Continue simvastatin 40 mg every 48 H
#GERD
#Hiatal hernia
No current meds
#Sleep apnea-patient uses fluctuating nasal CPAP
#Hypothyroidism
#thyroid cancer status post thyroidectomy
-Continue levothyroxine 100 mcg daily
#Anxiety/depression
-Continue Lexapro 30 mg at bedtime
#Seasonal allergies
-Continue Zyrtec 10 mg daily
#Obesity due to excess calorie consumption�BMI 32.2 kg
Recommend low-fat diet, and weight loss
#FRANCES
-uses CPAP
-Continue home CPAP pillow
Other PMH:
fibromyalgia
osteoarthritis
breast cancer with left radical mastectomy
[id number]
DVT prophylaxis
Hold current Eliquis for surgery
Full code for surgery but then after patient request DNR -- code status has been changed to DNR as of January 11, 2024 (confirmed this with the patient and her daughter)
At the time of discharge, patient will need a note saying that she was hospitalized.
On January 11, 2024, I spoke with patient and her daughter inside patient's room. I discussed with them the need for holding anticoagulation (given bleeding risk/anemia) at this time, discussed activity with physical and occupational therapy, and SNF
placement. All questions and concerns were answered to satisfaction.
Total time spent today on seeing and examining the patient, discussing patient's case with patient and her daughter, documentation, consulting infectious disease, and reviewing and placing orders was 60 minutes.
Anticipated Discharge: 24 - 48 hours
Subjective/Interval History
-
Date of Service: January 11, 2024
Patient was seen and examined. She denied any pain or any other new, significant symptoms or complaints.
Objective Data
-
Labs:
Laboratory Results
01/10/24 01/11/24
21:54 04:54
WBC 9.0
Hgb 8.1 L 7.4 L
Hct 22.8 L 21.2 L
Plt Count 225
Sodium 136
Potassium 5.0
Chloride 110 H
Carbon Dioxide 18 L
BUN 32 H
Creatinine 1.9 H
Glucose 142 H
Calcium 9.7
Vital Signs:
Vital Signs
Temp Pulse Resp BP Pulse Ox
97.9 F 59 16 115/55 99
01/11/24 03:55 01/11/24 03:55 01/11/24 03:55 01/11/24 03:55 01/11/24 03:55
I&O
01/10/24 01/11/24 01/12/24
06:59 06:59 06:59
Intake Total 580 / 580
Balance 580 / 580
--- NOTE | 2024-01-11 09:02 | WOUNDNOTE ---
NEO RN NOTE: Confirmed with Dr. Davian castillo cancel wound consult, Dr. Hernandez following.
[2024-01-11] MEDS: SODIUM BICARBONATE 1300 MG PO ×2 (10:24→20:50)
[2024-01-11] MEDS: TIKOSYN 125 MCG PO ×2 (10:24→20:50)
[2024-01-11] MEDS: ZYRTEC 10 MG PO (10:25)
[2024-01-11] MEDS: APRESOLINE 50 MG PO ×2 (10:25→20:50)
[2024-01-11] MEDS: BENICAR 20 MG PO (10:25)
--- NOTE | 2024-01-11 12:12 | CM ---
Reviewed the chart notes and spoke with the patient at the bedside. Patient resides alone in a one story home with three steps to enter. The patient reports no DME/VN/SNF in the past. The patient confirmed her pharmacy of choices is the [facility]. Patient anticipates needing to go to SNF/rehab prior to transitioning home. Requests referral to [facility] be sent. Await PT evaluation. CM continues to be available to patient/family and is monitoring medical plan for
needs at discharge.
Plan: SNF/rehab at [facility]. Precert will be required.
[2024-01-11] MEDS: VANCOCIN 150 IV (12:52)
--- NOTE | 2024-01-11 13:07 | CON.ID ---
Consultation
-
Date/Time Consultation Requested: January 11, 2024 0956
Date/Time Consultation Performed: January 11, 2024 1300
Requesting Provider: Dr. Shilo Marcelo
Performing Provider: Dr. Marlen Pitt
Reason for Consultation: Right foot hematoma and laceration
Chief Complaint / Past History
Chief Complaint
Foot wound bleeding
History of Present Illness
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
between the first and second metatarsal. She had copious bleeding. She went to the urgent care and the wound was stitched with 1 suture. She reports the wound was not irrigated/cleaned prior to the stitch. She was sent to the ER right away due
to low blood pressure. Patient has a vasovagal syncope in the ambulance. On January 08 in the ER, foot x-ray obtained. Hematoma noted on the foot but no further bleeding. She was given Tdap vaccine. She was then discharged to home. She returned to
the ER January 09 due to foot wound bleeding, difficulty with bearing weight, and vagal episode. She was seen by podiatry who took her to the OR status post exploration, evacuation of the hematoma, repair of the arterial injury first dorsal metatarsal
artery. Wound cultures are pending.
Past History
Additional Past Medical History:
Paroxysmal atrial fibrillation on Eliquis
Hypertension
dyslipidemia
hypothyroidism
CKD4
Sleep apnea on CPAP
Fibromyalgia
History of breast cancer status post left radical mastectomy
Thyroid cancer status post thyroidectomy
Anxiety/depression
Appendectomy
Cholecystectomy
Cervical laminectomy
Right 1st, 2nd, 3rd metatarsal repair with hardware
Allergy History:
amlodipine Allergy (Verified 01/09/24 14:22)
fatigue
atenolol Allergy (Verified 01/09/24 14:22)
fatigue
codeine Allergy (Verified 01/09/24 14:22)
Nausea / Vomiting
fentanyl Allergy (Verified 01/09/24 14:22)
Nausea / Vomiting
lansoprazole Allergy (Verified 01/09/24 14:22)
diarrhea
lisinopril Allergy (Verified 01/09/24 14:22)
cough
meperidine [From Demerol] Allergy (Verified 01/09/24 14:22)
Nausea / Vomiting
oxycodone [From Percocet] Allergy (Verified 01/09/24 14:22)
Nausea / Vomiting and itching
propoxyphene [From Darvon] Allergy (Verified 01/09/24 14:22)
Nausea / Vomiting
Medications Reviewed: Yes
Current Antibiotics:
Vancomycin
Cefepime
Social History
Tobacco: Non-Smoker
Alcohol: Occasional
Drug: None
Personal:
Living: Alone
Family History
Family History: Not Pertinent
Review of Systems
Review of Systems
General: Negative Fever, Chills or Change in Appetite
Cardiovascular: Negative Chest Pain
Respiratory: Negative Dyspnea or Cough
Gasteroenterology: Other (no diarrhea); Negative Nausea or Vomiting
Genital / Urological: Negative Dysuria or Flank Pain
Endocrine: Negative Weakness
Skin / Hair / Nails: Negative Rash
Neurological: Negative Headache or Dizziness
All systems: All other systems were reviewed and were negative
Vital Signs
Temp Pulse Resp BP Pulse Ox
98.4 F 81 16 119/54 99
01/11/24 11:15 01/11/24 11:15 01/11/24 11:15 01/11/24 11:15 01/11/24 08:38
Physical Exam
Physical Exam
Constitutional: No Acute Distress and Comfortable
Eyes: No Conjunctival Hemorrhage and Sclera Anicteric
Cardiovascular: Regular Rate and S1/S2
Pulmonary: Clear
Gastrointestinal: Soft, Non Tender, Non Distended and Normal Bowel Sounds
Wound: Other (Right foot dressing dry/just changed by podiatry)
Lab / Diagnostic Study Results
01/11/24 04:54
01/11/24 04:54
Abs Immat Gran (auto) 0.1 10^3/uL (0-0.05) H 01/11/24 04:54
Absolute Neuts (auto) 7.3 10^3/uL (1.4-6.5) H 01/11/24 04:54
Absolute Lymphs (auto) 1.5 10^3/uL (1.2-3.4) 01/11/24 04:54
Absolute Monos (auto) 0.2 10^3/uL (0.1-0.6) 01/11/24 04:54
Absolute Basos (auto) 0.0 10^3/uL (0-0.2) 01/11/24 04:54
Immature Gran % 0.6 % (0-0.5) H 01/11/24 04:54
Neutrophils % 80.6 % (42.2-75.2) H 01/11/24 04:54
Lymphocytes % 17.0 % (20.5-51.1) L 01/11/24 04:54
Monocytes % 1.7 % (1.7-9.3) 01/11/24 04:54
Eosinophils % 0.0 % (0-6) 01/11/24 04:54
Basophils % 0.1 % (0-2) 01/11/24 04:54
ESR 13 mm/hour (0-20) 01/10/24 16:58
C-Reactive Protein < 5.00 mg/L (0.0-10.00) 01/10/24 16:58
Microbiology Results
Micro:
01/10/24 20:30 Wound Culture - Pending
Foot - Right Gram Stain - Preliminary
01/10/24 20:30 Anaerobic Culture - Pending
Foot - Right
01/11/24 04:50 MRSA Screen - Pending
Nose
01/09/24 foot xray: No radiographic evidence for acute fracture or acute osteomyelitis in the right foot. Prosthesis in the right 1st MTP joint with suspicion for loosening of the stem of the prosthesis extending into the base of the proximal
phalanx. Previous instrumentation and osseous fusion across the right 1st, 2nd, and 3rd tarsometatarsal joints. Screw in the 2nd metatarsal head.
Assessment / Plan
# Right foot traumatic laceration/ hematoma/arterial injury from garden blanca penetrating through sneakers
01/09 s/p exploration and evacuation of right foot hematoma with ligation of vessel
OR cx pending.
Wound likely contaminated with polymicrobial organisms at time of injury.
Add po metronidazole to Vancomycin/cefepime pending culture data.
Received Tdap on 01/09/2024 in ED as documented.
[2024-01-11] MEDS: FLAGYL 500 MG PO (17:48)
[2024-01-11] MEDS: LIPITOR 20 MG PO (17:48)
[2024-01-11] MEDS: STERILE WATER FOR INJECTION 10 ML IV (17:50)
[2024-01-11] MEDS: MAXIPIME 1000 MG IV (17:50)
[2024-01-11 19:13] LABS: Hematocrit 24.3 % (37.0-47.0); Hemoglobin 8.8 g/dL (12.0-16.0); Mean Corp Hgb Conc. 36.2 g/dL (33.0-37.0); Mean Corpuscular Hgb 32.1 pg (27.0-31.0); Mean Corpuscular Volume 88.7 fL (81.0-99.0); Mean Platelet Volume 9.8 fL (7.4-10.4); Platelet Count 237 10^3/uL (130-400); Red Blood Cell Count 2.74 10^6/uL (4.20-5.40); Red Cell Dist. Width 14.3 % (11.5-14.5)
[2024-01-11] MEDS: TYLENOL 650 MG PO (20:50)
[2024-01-11] MEDS: LEXAPRO 30 MG PO (22:26)
[2024-01-11] MEDS: CARDIZEM CD PO (22:26)
[2024-01-12] VITALS (7 sets, daily range): BP systolic 90–137; BP diastolic 44–63
[2024-01-12] MEDS: FLAGYL 500 MG PO ×4 (00:39→23:29)
[2024-01-12 05:13] LABS: % Basophils 0.2 % (0-2); % Eosinophils 0.2 % (0-6); % Immature Granulocytes 0.6 % (0-0.5); % Lymphocytes 25.9 % (20.5-51.1); % Monocytes 8.1 % (1.7-9.3); Absolute Immature Granulocytes 0.1 10^3/uL (0-0.05); Absolute Lymphocytes 3.4 10^3/uL (1.2-3.4); Absolute Monocytes 1.1 10^3/uL (0.1-0.6); Absolute Neutrophils 8.4 10^3/uL (1.4-6.5); Hematocrit 23.1 % (37.0-47.0); Hemoglobin 8.2 g/dL (12.0-16.0); Mean Corp Hgb Conc. 35.5 g/dL (33.0-37.0); Mean Corpuscular Hgb 31.9 pg (27.0-31.0); Mean Corpuscular Volume 89.9 fL (81.0-99.0); Mean Platelet Volume 10.1 fL (7.4-10.4); Nucleated Red Blood Cells % 0 %; Platelet Count 217 10^3/uL (130-400); Red Blood Cell Count 2.57 10^6/uL (4.20-5.40); Red Cell Dist. Width 14.2 % (11.5-14.5); White Blood Cell Count 12.9 10^3/uL (4.8-10.8)
[2024-01-12 05:24] LABS: Vancomycin Random 13.5 ug/ml
[2024-01-12 05:40] LABS: Blood Urea Nitrogen 34 mg/dl (7-17); Calcium 9.9 mg/dl (8.4-10.2); Carbon Dioxide 19 mmol/L (22-30); Chloride 108 mmol/L (98-107); Estimated Creatinine Clearance 27 ml/min; Glucose 110 mg/dl (70-99); Potassium 4.8 mmol/L (3.5-5.1); Sodium 133 mmol/L (135-145); eGFR 35.89
[2024-01-12] MEDS: SYNTHROID 100 MCG PO (06:04)
[2024-01-12] MEDS: SODIUM BICARBONATE PO ×2 (08:00→08:29)
[2024-01-12] MEDS: TIKOSYN 125 MCG PO ×2 (08:34→20:53)
[2024-01-12] MEDS: BENICAR 20 MG PO (08:34)
[2024-01-12] MEDS: ZYRTEC 10 MG PO (08:35)
[2024-01-12] MEDS: APRESOLINE 50 MG PO ×2 (08:35→20:53)
[2024-01-12] MEDS: ZOFRAN 4 MG IV (08:36)
--- NOTE | 2024-01-12 09:50 | PHA.VAN.FU ---
Vancomycin Assessment / Plan
- Assessment
Renal Function: SCR Decreasing
WBC's are: Trending Down
In the past 24 hrs, patient has been: Afebrile
Concomitant Antimicrobials: cefepime, metronidazole
- Assessment - Therapeutic Drug Monitoring
Random Level: 13.5 - drawn ~15.5H after previous dose of 750mg
- Dosing Plan
Dosing by Level: Re-dose today (Vanc 750mg)
- Monitoring Plan
Random Level: 01/12 06
- Follow Up
Pharmacy will continue to follow.
Vancomycin Follow UP
- -
Patient Age: 78
Patient Sex: Female
Vancomycin Day #: 3
Indication: Skin And Soft Tissue
Requesting Provider: Olya Montoya / Dr. Pitt
Pertinent Antimicrobial Allergies:
no pertinent antibiotic allergies
Height / Weight:
Height 4 ft 11 in
Actual Weight 68.549 kg
Pertinent Past Medical History: CKD
- Vital Signs / Lab Results
Temp Pulse Resp BP Pulse Ox
98.0 F 57 16 137/63 97
01/12/24 08:00 01/12/24 08:00 01/12/24 08:00 01/12/24 08:00 01/12/24 08:00
Lab Results - Hematology
01/10/24 01/10/24 01/11/24
16:23 16:58 04:54
WBC Cancelled 10.9 H 9.0
01/11/24 01/12/24
19:08 04:39
WBC 20.0 H 12.9 H
Lab Results - Chemistry
01/10/24 01/11/24 01/12/24
16:58 04:54 04:39
BUN 34 H 32 H 34 H
Creatinine 1.9 H 1.9 H 1.5 H
Estimated Creat Clear
Albumin 2.8 L
Microbiology Results
01/11/24 04:50 MRSA Screen - Final
Nose No Methicillin Resistant Staphylococcus aureus isolated.
01/10/24 20:30 Gram Stain - Preliminary
Foot - Right
Therapeutic Drug Monitoring
Random Vancomycin 13.5 ug/ml 01/12/24 04:39
--- NOTE | 2024-01-12 11:56 | W.PN.ID1 ---
Date of Service
Date of Service: January 12, 2024
Today's Communication
Awaiting OR cx.
Assessment / Plan
# Right foot traumatic laceration/ hematoma/arterial injury from garden blanca penetrating through sneakers
# Leukocytosis trending down
# PCN allergy
01/08 received Tdap in ED
01/09 s/p exploration and evacuation of right foot hematoma with ligation of vessel
OR cx pending.
Wound likely contaminated with polymicrobial organisms at time of injury.
Continue Vancomycin/cefepime/metronidazole pending culture data.
# Additional Past Medical History:
Paroxysmal atrial fibrillation on Eliquis
Hypertension
dyslipidemia
hypothyroidism
CKD4
Sleep apnea on CPAP
Fibromyalgia
History of breast cancer status post left radical mastectomy
Thyroid cancer status post thyroidectomy
Anxiety/depression
Appendectomy
Cholecystectomy
Cervical laminectomy
Right 1st, 2nd, 3rd metatarsal repair with hardware
Chief Complaint
-: Leukocytosis and Other (Foot hematoma)
Vital Signs / Physical Exam
Vital Signs
Vital Signs
Temp Pulse Resp BP Pulse Ox
98.0 F 57 16 137/63 97
01/12/24 08:00 01/12/24 08:00 01/12/24 08:00 01/12/24 08:00 01/12/24 08:00
Physical Exam
Constitutional: No Acute Distress
Objective Data
Lab Data
Lab Results
01/12/24 04:39
01/12/24 04:39
ESR 13 mm/hour (0-20) 01/10/24 16:58
Estimated Creat Clear 27 ml/min 01/12/24 04:39
Total Bilirubin 0.6 mg/dl (0.2-1.3) 01/10/24 16:58
AST 25 U/L (14-36) 01/10/24 16:58
ALT 23 U/L (0-35) 01/10/24 16:58
Alkaline Phosphatase 48 U/L (38-126) 01/10/24 16:58
C-Reactive Protein < 5.00 mg/L (0.0-10.00) 01/10/24 16:58
Most recent labs reviewed.
Micro Results:
01/10/24 20:30 Wound Culture - Preliminary
Foot - Right Gram Stain - Preliminary
01/10/24 20:30 Anaerobic Culture - Preliminary
Foot - Right Culture pending. Anaerobic cultures are examined after 3
days incubation. Additional information to follow.
01/11/24 04:50 MRSA Screen - Final
Nose No Methicillin Resistant Staphylococcus aureus isolated.
01/09/24 foot xray: No radiographic evidence for acute fracture or acute osteomyelitis in the right foot. Prosthesis in the right 1st MTP joint with suspicion for loosening of the stem of the prosthesis extending into the base of the proximal
phalanx. Previous instrumentation and osseous fusion across the right 1st, 2nd, and 3rd tarsometatarsal joints. Screw in the 2nd metatarsal head.
[2024-01-12] MEDS: ELIQUIS 5 MG PO ×2 (12:11→20:53)
[2024-01-12] MEDS: VANCOCIN 150 IV (12:11)
--- NOTE | 2024-01-12 13:51 | CM ---
Reviewed the chart notes. Per ID, awaiting OR cx. CM spoke with Christiane Presidential Support Specialist with [facility]. Able to accept at discharge. Precert will be required.
[facility] NPI# [id number]
Admitting Dr. Jesus Bernard NPI# [id number]
Plan: Discharge to [facility] when medically stable and precert obtained.
[2024-01-12] MEDS: STERILE WATER FOR INJECTION 10 ML IV (18:04)
[2024-01-12] MEDS: MAXIPIME 1000 MG IV (18:04)
--- NOTE | 2024-01-12 18:25 | W.PN.HOSP.TC ---
Today's Communication/Plan
-
Continue Eliquis
Continue Antibiotics
Await cultures for final determination on antibiotics
Assessment / Plan
Assessment / Plan
Physical Exam
Gen-AAOx3, NAD, obese
HEENT-NC, AT, anicteric, clear oral mm
Neck-supple
CV-reg, no M, +S1/S2
Lungs-clear B/L
Abd-soft, NT, ND
Ext-no edema
Musculoskeletal-no cyanosis, clubbing. Right foot swelling with jessica compression wrap
Skin-warm and dry
Neuro-grossly non-focal
Psych-calm, cooperative

Assessment/Plan
#Right foot hematoma secondary to traumatic laceration with garden blanca
# Hx plates and hardware in right first metatarsal
-Had sutured at urgent care on 01/09/2024
-Was given tetanus booster on 01/09/2024
-Podiatry Dr. Hernandez took patient to the OR on 01/11/24 to ligate a vessel and evacuate hematoma both on the right foot
-Consulted Podiatry, was seen by Dr. Hernandez
-Eliquis was held from 01/09/2024 evening through January 11, 2024 evening
-Eliquis resumed on January 12, 2024
-Limited weight-bearing of the right foot for transfers and up to 100 feet for now.
-Post op shoe pending (as per podiatry)
-Pain control as needed
-Consulted ID, recommendations appreciated: continue Vancomycin, Cefepime and Flagyl for now -- await operating room cultures
#Right first MTP prosthesis
-Surgery performed about 10 years ago according to the patient at [facility], indication for surgery was arthritis. X-rays shows suspicion of loosening of the stem of the prosthesis extending into the base of the proximal phalanx. No
radiographic evidence for acute fracture or acute osteomyelitis. Dr. Avalos spoke with Dr. Hernandez (tents assembler), she is not concerned for osteomyelitis but is more concerned for the implant causing pressure to her neurovascular structures.
#A-fib/atrial flutter-paroxysmal -- on home Eliquis
-CHADSVASC is 4
-Resumed Eliquis
-Continue Tikosyn 125 mcg p.o. twice daily, diltiazem 120 mg at bedtime
-Monitor QTc on telemetry
EKG 01/09/2024: Sinus rhythm with PACs, LBBB stable since July 2023
#Acute blood loss anemia
-Monitor CBC
-In the setting of anticoagulation with Eliquis and right foot trauma, hematoma. Baseline hemoglobin unknown but was 12.3 in July. Monitor closely and transfuse if hemoglobin continues to drop.
#Vasovagal syncope
-patient passed out in the ambulance on January 11, 2024. Had warning symptoms of nausea and seeing spots in her vision.
-Suspected from acute trauma
#Chronic hyponatremia
-sodium 133. This is near her baseline.
#CKD stage 4
-Patient follows with Dr. Robertson
-Continue sodium bicarb 1300 mg p.o. twice daily
-Follow CMP
#HTN�benign
122/83
-Continue olmesartan 20 mg daily, hydralazine 50 mg p.o. twice daily with hold parameters
-Hold spironolactone 50 mg daily
#HLD
-Continue simvastatin 40 mg every 48 H
#GERD
#Hiatal hernia
No current meds
#Sleep apnea-patient uses fluctuating nasal CPAP
#Hypothyroidism
#thyroid cancer status post thyroidectomy
-Continue levothyroxine 100 mcg daily
#Anxiety/depression
-Continue Lexapro 30 mg at bedtime
#Seasonal allergies
-Continue Zyrtec 10 mg daily
#Obesity due to excess calorie consumption�BMI 32.2 kg
Recommend low-fat diet, and weight loss
#FRANCES
-uses CPAP
-Continue home CPAP pillow
Other PMH:
fibromyalgia
osteoarthritis
breast cancer with left radical mastectomy
TOGIAK
DVT prophylaxis
Hold current Eliquis for surgery
Full code for surgery but then after patient request DNR -- code status has been changed to DNR as of January 11, 2024 (confirmed this with the patient and her daughter)
At the time of discharge, patient will need a note saying that she was hospitalized.
On January 11, 2024, I spoke with patient and her daughter inside patient's room. I discussed with them the need for holding anticoagulation (given bleeding risk/anemia) at this time, discussed activity with physical and occupational therapy, and SNF
placement. All questions and concerns were answered to satisfaction.
On January 12, 2024, I spoke with patient and patient's family inside patient's room. I also spoke, over the phone, with patient's daughter Tisha. All questions and concerns were answered to satisfaction.
Anticipated Discharge: 24 - 48 hours
Subjective/Interval History
-
Date of Service: January 12, 2024
Patient was seen and examined. She reported significant nausea.
Objective Data
-
Vital Signs:
Vital Signs
Temp Pulse Resp BP Pulse Ox
98.6 F 61 16 119/62 97
01/12/24 16:00 01/12/24 16:00 01/12/24 16:00 01/12/24 16:00 01/12/24 16:00
I&O
01/11/24 01/12/24 01/13/24
06:59 06:59 06:59
Intake Total 580 / 580 1690 / 1690
Output Total 700 / 700
Balance 580 / 580 1690 / 1690 -700 / -700
[2024-01-12] MEDS: SODIUM BICARBONATE 1300 MG PO (20:53)
[2024-01-12] MEDS: LEXAPRO 30 MG PO (20:53)
[2024-01-12] MEDS: CARDIZEM CD PO (23:01)
[2024-01-13 03:59] VITALS: BP 113/55
[2024-01-13] MEDS: SENOKOT-S 1 TABLET PO (04:05)
[2024-01-13] MEDS: SYNTHROID 100 MCG PO (04:05)
[2024-01-13 05:10] LABS: % Basophils 0.7 % (0-2); % Eosinophils 1.8 % (0-6); % Immature Granulocytes 1.1 % (0-0.5); % Monocytes 9.8 % (1.7-9.3); % Neutrophils 51.6 % (42.2-75.2); Absolute Basophils 0.1 10^3/uL (0-0.2); Absolute Eosinophils 0.2 10^3/uL (0-0.7); Absolute Immature Granulocytes 0.1 10^3/uL (0-0.05); Absolute Monocytes 0.8 10^3/uL (0.1-0.6); Absolute Neutrophils 4.4 10^3/uL (1.4-6.5); Hematocrit 24.3 % (37.0-47.0); Hemoglobin 8.2 g/dL (12.0-16.0); Mean Corp Hgb Conc. 33.7 g/dL (33.0-37.0); Mean Corpuscular Hgb 31.3 pg (27.0-31.0); Mean Corpuscular Volume 92.7 fL (81.0-99.0); Mean Platelet Volume 10.2 fL (7.4-10.4); Nucleated Red Blood Cells % 0 %; Platelet Count 223 10^3/uL (130-400); Red Blood Cell Count 2.62 10^6/uL (4.20-5.40); Red Cell Dist. Width 14.5 % (11.5-14.5); White Blood Cell Count 8.5 10^3/uL (4.8-10.8)
[2024-01-13 05:33] LABS: Vancomycin Random 15.5 ug/ml
[2024-01-13 06:08] LABS: ALT (SGPT) 21 U/L (0-35); AST (SGOT) 22 U/L (14-36); Albumin 2.7 g/dl (3.5-5.0); Alkaline Phosphatase 39 U/L (38-126); Blood Urea Nitrogen 32 mg/dl (7-17); Calcium 9.4 mg/dl (8.4-10.2); Carbon Dioxide 22 mmol/L (22-30); Chloride 106 mmol/L (98-107); Estimated Creatinine Clearance 25 ml/min; Glucose 88 mg/dl (70-99); Potassium 4.9 mmol/L (3.5-5.1); Sodium 134 mmol/L (135-145); Total Bilirubin 0.2 mg/dl (0.2-1.3); Total Protein 5.2 g/dl (6.3-8.2); eGFR 33.22
[2024-01-13 07:45] VITALS: BP 115/88
--- NOTE | 2024-01-13 08:00 | PHA.VAN.FU ---
Vancomycin Assessment / Plan
- Assessment
Renal Function: Stable
WBC's are: WNL
In the past 24 hrs, patient has been: Afebrile
Concomitant Antimicrobials: cefepime, metronidazole
- Assessment - Therapeutic Drug Monitoring
Random Level: 15.5 - drawn ~16.5H after previous dose of 750mg
- Dosing Plan
Dosing by Level: Re-dose today (Vanc 750mg)
Dosing Comments: if additional accumulation, may need prolonged interval
- Monitoring Plan
Random Level: 01/13 0600
- Follow Up
Pharmacy will continue to follow.
Vancomycin Follow UP
- -
Patient Age: 78
Patient Sex: Female
Vancomycin Day #: 4
Indication: Skin And Soft Tissue
Requesting Provider: Olya Montoya / Dr. Pitt
Pertinent Antimicrobial Allergies:
no pertinent antibiotic allergies
Height / Weight:
Height 4 ft 11 in
Actual Weight 68.549 kg
Pertinent Past Medical History: CKD, BMI ~30
- Vital Signs / Lab Results
Temp Pulse Resp BP Pulse Ox
98.7 F 62 18 113/55 98
01/13/24 03:59 01/13/24 03:59 01/13/24 03:59 01/13/24 03:59 01/13/24 03:59
Lab Results - Hematology
01/10/24 01/10/24 01/11/24
16:23 16:58 04:54
WBC Cancelled 10.9 H 9.0
01/11/24 01/12/24 01/13/24
19:08 04:39 04:46
WBC 20.0 H 12.9 H 8.5
Lab Results - Chemistry
01/10/24 01/11/24 01/12/24
16:58 04:54 04:39
BUN 34 H 32 H 34 H
Creatinine 1.9 H 1.9 H 1.5 H
Estimated Creat Clear 22 21 27
Albumin 2.8 L
01/13/24
04:46
BUN 32 H
Creatinine 1.6 H
Estimated Creat Clear 25
Albumin 2.7 L
Microbiology Results
01/10/24 20:30 Wound Culture - Preliminary
Foot - Right Gram Stain - Preliminary
01/10/24 20:30 Anaerobic Culture - Preliminary
Foot - Right Culture pending. Anaerobic cultures are examined after 3
days incubation. Additional information to follow.
01/11/24 04:50 MRSA Screen - Final
Nose No Methicillin Resistant Staphylococcus aureus isolated.
Therapeutic Drug Monitoring
Random Vancomycin 15.5 ug/ml 01/13/24 04:46
[2024-01-13] MEDS: ZOFRAN 4 MG IV (08:04)
[2024-01-13] MEDS: SODIUM BICARBONATE 1300 MG PO ×2 (08:56→20:23)
[2024-01-13] MEDS: ELIQUIS 5 MG PO ×2 (08:56→20:23)
[2024-01-13] MEDS: ZYRTEC 10 MG PO (08:56)
[2024-01-13] MEDS: BENICAR PO ×2 (08:56→10:03)
[2024-01-13] MEDS: TIKOSYN 125 MCG PO ×2 (08:57→20:23)
[2024-01-13] MEDS: FLAGYL 500 MG PO (08:57)
[2024-01-13] MEDS: APRESOLINE PO ×2 (08:57→10:02)
[2024-01-13] MEDS: VANCOCIN 150 IV (10:04)
[2024-01-13 11:25] VITALS: BP 116/49
--- NOTE | 2024-01-13 12:22 | CM ---
Reviewed the chart notes. Per notes, waiting final culture results. [facility] will accept patient at discharge. Precert will be required.
[facility] NPI# [id number]
Admitting Dr. Jesus Bernard NPI# [id number]
Plan: Discharge to [facility] when medically stable and precert obtained.
--- NOTE | 2024-01-13 12:35 | W.PN.ID1 ---
Date of Service
Date of Service: January 13, 2024
Today's Communication
Wound infection ruled out.
Discontinue Vancomycin/cefepime/metronidazole.
ID will sign off.
Assessment / Plan
# Right foot traumatic laceration/ hematoma/arterial injury from garden blanca penetrating through sneakers
# Leukocytosis resolved
# PCN allergy
01/08 received Tdap in ED
01/09 s/p exploration and evacuation of right foot hematoma with ligation of vessel
OR cx: only 2 colonies CoNS (skin ermias)
Wound infection ruled out.
Discontinue Vancomycin/cefepime/metronidazole.
ID will sign off.
# Additional Past Medical History:
Paroxysmal atrial fibrillation on Eliquis
Hypertension
dyslipidemia
hypothyroidism
CKD4
Sleep apnea on CPAP
Fibromyalgia
History of breast cancer status post left radical mastectomy
Thyroid cancer status post thyroidectomy
Anxiety/depression
Appendectomy
Cholecystectomy
Cervical laminectomy
Right 1st, 2nd, 3rd metatarsal repair with hardware
Chief Complaint
-: Other (Foot hematoma)
Subjective / Review of Systems
c/o nausea with abx's.
Vital Signs / Physical Exam
Vital Signs
Vital Signs
Temp Pulse Resp BP Pulse Ox
98.0 F 60 16 116/49 98
01/13/24 11:25 01/13/24 11:25 01/13/24 11:25 01/13/24 11:25 01/13/24 11:25
Physical Exam
Constitutional: No Acute Distress and Comfortable
Pulmonary: Clear
Gastrointestinal: Soft, Non Tender and Non Distended
Neurological: AO x 3
Objective Data
Lab Data
Lab Results
01/13/24 04:46
01/13/24 04:46
ESR 13 mm/hour (0-20) 01/10/24 16:58
Estimated Creat Clear 25 ml/min 01/13/24 04:46
Total Bilirubin 0.2 mg/dl (0.2-1.3) 01/13/24 04:46
AST 22 U/L (14-36) 01/13/24 04:46
ALT 21 U/L (0-35) 01/13/24 04:46
Alkaline Phosphatase 39 U/L (38-126) 01/13/24 04:46
C-Reactive Protein < 5.00 mg/L (0.0-10.00) 01/10/24 16:58
Most recent labs reviewed.
Micro Results:
01/10/24 20:30 Anaerobic Culture - Preliminary
Foot - Right Culture pending. Anaerobic cultures are examined after 3
days incubation. Additional information to follow.
01/10/24 20:30 Wound Culture - Preliminary
Foot - Right Coagulase neg. staphylococcus
Gram Stain - Preliminary
01/11/24 04:50 MRSA Screen - Final
Nose No Methicillin Resistant Staphylococcus aureus isolated.
01/09/24 foot xray: No radiographic evidence for acute fracture or acute osteomyelitis in the right foot. Prosthesis in the right 1st MTP joint with suspicion for loosening of the stem of the prosthesis extending into the base of the proximal
phalanx. Previous instrumentation and osseous fusion across the right 1st, 2nd, and 3rd tarsometatarsal joints. Screw in the 2nd metatarsal head.
[2024-01-13 12:37] LABS: Iron 50 ug/dl (37-170)
[2024-01-13 12:47] LABS: Percent Saturation 17 % (20-50); Total Iron Binding Capacity 294 ug/dl (265-497)
[2024-01-13 13:11] LABS: Ferritin 39.3 ng/ml (11.1-264.0)
[2024-01-13 14:35] VITALS: BP 101/57
[2024-01-13] MEDS: LIPITOR 20 MG PO (17:00)
--- NOTE | 2024-01-13 18:51 | W.PN.HOSP.TC ---
Today's Communication/Plan
-
No need for further antibiotics
Hold Hydralazine due to lower blood pressures
Anticipated discharge tomorrow
Assessment / Plan
Assessment / Plan
Physical Exam
Gen-AAOx3, NAD, obese
HEENT-NC, AT, anicteric, clear oral mm
Neck-supple
CV-reg, no M, +S1/S2
Lungs-clear B/L
Abd-soft, NT, ND
Ext-no edema
Musculoskeletal-no cyanosis, clubbing. Right foot swelling with jessica compression wrap
Skin-warm and dry
Neuro-grossly non-focal
Psych-calm, cooperative

Assessment/Plan
#Right foot hematoma secondary to traumatic laceration with garden blanca
# Hx plates and hardware in right first metatarsal
-Had sutured at urgent care on 01/09/2024
-Was given tetanus booster on 01/09/2024
-Podiatry Dr. Hernandez took patient to the OR on 01/11/24 to ligate a vessel and evacuate hematoma both on the right foot
-Consulted Podiatry, was seen by Dr. Hernandez
-Eliquis was held from 01/09/2024 evening through January 11, 2024 evening
-Eliquis resumed on January 12, 2024
-Limited weight-bearing of the right foot for transfers and up to 100 feet for now.
-Post op shoe pending (as per podiatry)
-Pain control as needed
-Consulted ID, recommendations appreciated: operating room cultures showed skin ermias (CoNS) -- no need for further antibiotics
#Right first MTP prosthesis
-Surgery performed about 10 years ago according to the patient at [facility], indication for surgery was arthritis. X-rays shows suspicion of loosening of the stem of the prosthesis extending into the base of the proximal phalanx. No
radiographic evidence for acute fracture or acute osteomyelitis. Dr. Avalos spoke with Dr. Hernandez (drum tender), she is not concerned for osteomyelitis but is more concerned for the implant causing pressure to her neurovascular structures.
#A-fib/atrial flutter-paroxysmal -- on home Eliquis
-CHADSVASC is 4
-Continue Eliquis
-Continue Tikosyn 125 mcg p.o. twice daily, diltiazem 120 mg at bedtime
-Monitor QTc on telemetry
EKG 01/09/2024: Sinus rhythm with PACs, LBBB stable since July 2023
#Acute blood loss anemia
-Monitor CBC
-In the setting of anticoagulation with Eliquis and right foot trauma, hematoma. Baseline hemoglobin unknown but was 12.3 in July. Monitor closely and transfuse if hemoglobin continues to drop.
-Recheck iron studies outpatient
#Vasovagal syncope
-patient passed out in the ambulance on January 11, 2024. Had warning symptoms of nausea and seeing spots in her vision.
-Suspected from acute trauma
#Chronic hyponatremia
-sodium 134. This is near her baseline.
#CKD stage 4
-Patient follows with Dr. Robertson
-Continue sodium bicarb 1300 mg p.o. twice daily
-Follow CMP
#HTN�benign
-On Diltiazem
-Continue olmesartan 20 mg daily
-Hold Hydralazine 50 mg BID due to hypotension
-Hold spironolactone 50 mg daily
#HLD
-Continue simvastatin 40 mg every 48 H
#GERD
#Hiatal hernia
No current meds
#Sleep apnea-patient uses fluctuating nasal CPAP
#Hypothyroidism
#thyroid cancer status post thyroidectomy
-Continue levothyroxine 100 mcg daily
#Anxiety/depression
-Continue Lexapro 30 mg at bedtime
#Seasonal allergies
-Continue Zyrtec 10 mg daily
#Obesity due to excess calorie consumption�BMI 32.2 kg
Recommend low-fat diet, and weight loss
#FRANCES
-uses CPAP
-Continue home CPAP pillow
Other PMH:
fibromyalgia
osteoarthritis
breast cancer with left radical mastectomy
[place]
DVT prophylaxis
Hold current Eliquis for surgery
Full code for surgery but then after patient request DNR -- code status has been changed to DNR as of January 11, 2024 (confirmed this with the patient and her daughter)
At the time of discharge, patient will need a note saying that she was hospitalized.
On January 11, 2024, I spoke with patient and her daughter inside patient's room. I discussed with them the need for holding anticoagulation (given bleeding risk/anemia) at this time, discussed activity with physical and occupational therapy, and SNF
placement. All questions and concerns were answered to satisfaction.
On January 12, 2024, I spoke with patient and patient's family inside patient's room. I also spoke, over the phone, with patient's daughter Tisha. All questions and concerns were answered to satisfaction.
On January 13, 2024, I spoke with patient and over the phone, with patient's daughter Tisha. All questions and concerns were answered to satisfaction.
Anticipated Discharge: Within 24 hours
Subjective/Interval History
-
Date of Service: January 13, 2024
Patient was seen and examined. She reported some nausea, and some pain in her left foot but denied any significant new symptoms or complaints.
Objective Data
-
Vital Signs:
Vital Signs
Temp Pulse Resp BP Pulse Ox
98.5 F 78 16 101/57 98
01/13/24 14:35 01/13/24 14:35 01/13/24 14:35 01/13/24 14:35 01/13/24 14:35
I&O
01/12/24 01/13/24 01/14/24
06:59 06:59 06:59
Intake Total 1690 / 1689 250 / 250 480 / 480
Output Total 700 / 700
Balance 1689 / 0 -450 / -450 480 / 480
[2024-01-13 19:20] VITALS: BP 108/54
[2024-01-13] MEDS: CARDIZEM CD 120 MG PO (21:54)
[2024-01-13] MEDS: LEXAPRO 30 MG PO (21:55)
[2024-01-13 23:00] VITALS: BP 123/56
[2024-01-14 03:10] VITALS: BP 125/63
[2024-01-14] MEDS: TYLENOL 500 MG PO (03:36)
[2024-01-14] MEDS: SYNTHROID 100 MCG PO (04:40)
[2024-01-14 05:27] LABS: % Basophils 0.6 % (0-2); % Eosinophils 4.6 % (0-6); % Immature Granulocytes 1.5 % (0-0.5); % Lymphocytes 33.8 % (20.5-51.1); % Monocytes 11.1 % (1.7-9.3); % Neutrophils 48.4 % (42.2-75.2); Absolute Basophils 0.1 10^3/uL (0-0.2); Absolute Eosinophils 0.4 10^3/uL (0-0.7); Absolute Immature Granulocytes 0.1 10^3/uL (0-0.05); Absolute Lymphocytes 2.6 10^3/uL (1.2-3.4); Absolute Monocytes 0.9 10^3/uL (0.1-0.6); Absolute Neutrophils 3.8 10^3/uL (1.4-6.5); Hematocrit 25.6 % (37.0-47.0); Hemoglobin 8.7 g/dL (12.0-16.0); Mean Corpuscular Volume 94.1 fL (81.0-99.0); Mean Platelet Volume 10.3 fL (7.4-10.4); Nucleated Red Blood Cells % 0 %; Platelet Count 232 10^3/uL (130-400); Red Blood Cell Count 2.72 10^6/uL (4.20-5.40); Red Cell Dist. Width 14.4 % (11.5-14.5); White Blood Cell Count 7.8 10^3/uL (4.8-10.8)
[2024-01-14 05:52] LABS: ALT (SGPT) 19 U/L (0-35); AST (SGOT) 23 U/L (14-36); Albumin 2.7 g/dl (3.5-5.0); Alkaline Phosphatase 36 U/L (38-126); Blood Urea Nitrogen 33 mg/dl (7-17); Calcium 9.6 mg/dl (8.4-10.2); Carbon Dioxide 22 mmol/L (22-30); Chloride 107 mmol/L (98-107); Estimated Creatinine Clearance 27 ml/min; Glucose 89 mg/dl (70-99); Potassium 4.9 mmol/L (3.5-5.1); Sodium 134 mmol/L (135-145); Total Bilirubin 0.3 mg/dl (0.2-1.3); Total Protein 5.1 g/dl (6.3-8.2); eGFR 35.89
[2024-01-14 08:15] VITALS: BP 138/68
[2024-01-14] MEDS: SODIUM BICARBONATE 1300 MG PO (08:45)
[2024-01-14] MEDS: TIKOSYN 125 MCG PO (08:46)
[2024-01-14] MEDS: ZYRTEC 10 MG PO (08:46)
[2024-01-14] MEDS: BENICAR 20 MG PO (08:46)
[2024-01-14] MEDS: ELIQUIS 5 MG PO (08:46)
--- NOTE | 2024-01-14 09:13 | PN.CDI ---
CDI
- -
CDI:
Physician Documentation Request
Admit Date: 01/10/24 17:43
Dear Doctor Davian,
Please review the following and provide your response in the progress notes.
Clinical Indicators:
01/09 Pt admitted with Acute traumatic right foot laceration/hematoma.
01/09 H&P note: 'Acute traumatic right foot laceration -hematoma formation in the setting of anticoagulation with Eliquis.'....'Hold Eliquis.'
01/09 hgb on admission 7.8, Pt received 1 unit PRBC's
The following conditions now have an assumed link:
Acute blood loss anemia is assumed to be related to/associated with/exacerbated by anticoagulants.
Please clarify the relationship between these conditions:
Yes, Acute blood loss anemia is related to/associated with/exacerbated by Eliquis.
No, Acute blood loss anemia is not related to/associated with/exacerbated by Eliquis.
Other (please specify)
Use of terms such as suspected, likely, concern for, or probable (associated with a specific diagnosis that is being evaluated, monitored, or treated as if it exists) are acceptable and can be coded in the inpatient setting, when documented at the
time of discharge.
Thank you,
Roxy Castellano RN, BSN
CDI Specialist
Available via [place] [employer]
Please use your independent medical judgment in providing your response.
[2024-01-14 10:21] VITALS: BP 115/57; BP 92/68; PULSE 62; O2SAT 98
[2024-01-14 11:05] VITALS: BP 129/57
--- NOTE | 2024-01-14 12:58 | W.PN.HOSP.TC ---
Today's Communication/Plan
-
Discharge today
Assessment / Plan
Assessment / Plan
Physical Exam
Gen-AAOx3, NAD, obese
HEENT-NC, AT, anicteric, clear oral mm
Neck-supple
CV-reg, no M, +S1/S2
Lungs-clear B/L
Abd-soft, NT, ND
Ext-no edema
Musculoskeletal-no cyanosis, clubbing. Right foot swelling with jessica compression wrap
Skin-warm and dry
Neuro-grossly non-focal
Psych-calm, cooperative

Assessment/Plan
#Right foot hematoma secondary to traumatic laceration with garden blanca
# Hx plates and hardware in right first metatarsal
-Had sutured at urgent care on 01/09/2024
-Was given tetanus booster on 01/09/2024
-Podiatry Dr. Hernandez took patient to the OR on 01/11/24 to ligate a vessel and evacuate hematoma both on the right foot
-Consulted Podiatry, was seen by Dr. Hernandez
-Eliquis was held from 01/09/2024 evening through January 11, 2024 evening
-Eliquis resumed on January 12, 2024
-Limited weight-bearing of the right foot for transfers and up to 100 feet for now.
-Post op shoe pending (as per podiatry)
-Pain control as needed
-Consulted ID, recommendations appreciated: operating room cultures showed skin ermias (CoNS) -- no need for further antibiotics
#Right first MTP prosthesis
-Surgery performed about 10 years ago according to the patient at [facility], indication for surgery was arthritis. X-rays shows suspicion of loosening of the stem of the prosthesis extending into the base of the proximal phalanx. No
radiographic evidence for acute fracture or acute osteomyelitis. Dr. Avalos spoke with Dr. Hernandez (industrial safety engineer), she is not concerned for osteomyelitis but is more concerned for the implant causing pressure to her neurovascular structures.
#A-fib/atrial flutter-paroxysmal -- on home Eliquis
-CHADSVASC is 4
-Continue Eliquis
-Continue Tikosyn 125 mcg p.o. twice daily, diltiazem 120 mg at bedtime
-Monitor QTc on telemetry
EKG 01/09/2024: Sinus rhythm with PACs, LBBB stable since July 2023
#Acute blood loss anemia
#Yes, Acute blood loss anemia is related to/associated with/exacerbated by Eliquis.
-Monitor CBC
-In the setting of anticoagulation with Eliquis and right foot trauma, hematoma. Baseline hemoglobin unknown but was 12.3 in July. Monitor closely and transfuse if hemoglobin continues to drop.
-Recheck iron studies outpatient
#Vasovagal syncope
-patient passed out in the ambulance on January 11, 2024. Had warning symptoms of nausea and seeing spots in her vision.
-Suspected from acute trauma
#Chronic hyponatremia
-sodium 134. This is near her baseline.
#CKD stage 4
-Patient follows with Dr. Robertson
-Continue sodium bicarb 1300 mg p.o. twice daily
-Follow CMP
#HTN�benign
-On Diltiazem
-Continue olmesartan 20 mg daily
-Hold Hydralazine 50 mg BID due to hypotension
-Hold spironolactone 50 mg daily
#HLD
-Continue simvastatin 40 mg every 48 H
#GERD
#Hiatal hernia
No current meds
#Sleep apnea-patient uses fluctuating nasal CPAP
#Hypothyroidism
#thyroid cancer status post thyroidectomy
-Continue levothyroxine 100 mcg daily
#Anxiety/depression
-Continue Lexapro 30 mg at bedtime
#Seasonal allergies
-Continue Zyrtec 10 mg daily
#Obesity due to excess calorie consumption�BMI 32.2 kg
Recommend low-fat diet, and weight loss
#FRANCES
-uses CPAP
-Continue home CPAP pillow
Other PMH:
fibromyalgia
osteoarthritis
breast cancer with left radical mastectomy
[place]
DVT prophylaxis
Hold current Eliquis for surgery
Full code for surgery but then after patient request DNR -- code status has been changed to DNR as of January 11, 2024 (confirmed this with the patient and her daughter)
At the time of discharge, patient will need a note saying that she was hospitalized.
On January 11, 2024, I spoke with patient and her daughter inside patient's room. I discussed with them the need for holding anticoagulation (given bleeding risk/anemia) at this time, discussed activity with physical and occupational therapy, and SNF
placement. All questions and concerns were answered to satisfaction.
On January 12, 2024, I spoke with patient and patient's family inside patient's room. I also spoke, over the phone, with patient's daughter Tisha. All questions and concerns were answered to satisfaction.
On January 13, 2024, I spoke with patient and over the phone, with patient's daughter Tisha. All questions and concerns were answered to satisfaction.
More than 30 minutes spent in discharge including
Final examination of the patient
Summarizing hospital stay
Instructions for continuing care to all relevant caregivers
Preparation of discharge records, prescriptions, and referral forms
Total time spent (in minutes): 39
Anticipated Discharge: Today
Subjective/Interval History
-
Date of Service: January 14, 2024
Objective Data
-
Labs:
Laboratory Results
01/14/24
04:38
WBC 7.8
Hgb 8.7 L
Hct 25.6 L
Plt Count 232
Sodium 134 L
Potassium 4.9
Chloride 107
Carbon Dioxide 22
BUN 33 H
Creatinine 1.5 H
Glucose 89
Calcium 9.6
Total Bilirubin 0.3
AST 23
ALT 19
Alkaline Phosphatase 36 L
Vital Signs:
Vital Signs
Temp Pulse Resp BP Pulse Ox
98.2 F 73 17 129/57 96
01/14/24 11:05 01/14/24 11:05 01/14/24 11:05 01/14/24 11:05 01/14/24 11:05
I&O
01/13/24 01/14/24 01/15/24
06:59 06:59 06:59
Intake Total 250 / 250 600 / 600
Output Total 700 / 700
Balance -450 / -450 600 / 600
--- NOTE | 2024-01-14 13:47 | W.DS.TRANS ---
DC Summary - Cloth Inspector
-
Discharge Instructions:
Discharge Diagnosis/Procedures #Right foot hematoma secondary to traumatic
laceration with garden blanca
#History of plates and hardware in right first
metatarsal status post ligation of vessel and
hematoma evacuation - both on the right foot
#Right first MTP prosthesis
#A-fib/atrial flutter-paroxysmal
#Acute blood loss anemia
#Vasovagal syncope
#Chronic hyponatremia
#Chronic Kidney Disease stage 4
#Hypertension
#Hyperlipidemia
#Gastroesophageal Reflux Disease
#Hiatal hernia
#Sleep apnea
#Hypothyroidism
#Thyroid cancer status post thyroidectomy
#Anxiety/depression
#Seasonal allergies
#Obesity due to excess calorie consumption
#FRANCES
#Fibromyalgia
#Osteoarthritis
#History ofbreast cancer with left radical
mastectomy
Diet Low Cholesterol,Low Fat
Activity Other activity
Additional Activity -Limited weight-bearing of the right foot for
transfers and up to 100 feet for now.
-Post op shoe
Driving Restrictions No driving
Blood Work Needs CBC and CMP and Mag within 2-4 days
Other Services PT,OT
Instructions:
Stand-Alone Forms:
Changes to Home Medications: Yes
Discharge Medications:
DC Medications w/original date entered in [employer]
apixaban 5 mg tablet (Eliquis) 5 mg PO BID #60 tabs 04/06/19
simvastatin 40 mg tablet 40 mg PO Q48H@1700 High cholesterol 08/30/19
escitalopram oxalate 20 mg tablet 30 mg PO HS Mental Health/Anxiety 08/13/21
levothyroxine 100 mcg tablet 100 mcg PO DAILY Thyroid 05/07/22
spironolactone 50 mg tablet 50 mg PO DAILY Blood pressure 05/07/22
diltiazem HCl 120 mg capsule,24 hr,extended release 120 mg PO HS Heart disease/condition 05/08/22
hydralazine 50 mg tablet 50 mg PO BID Blood Pressure 10/04/23
sodium bicarbonate 650 mg tablet 1,300 mg PO BID Kidney Disease 05/27/23
dofetilide 125 mcg capsule (Tikosyn) 125 mcg PO BID Arrhythmia 07/30/23
olmesartan 20 mg tablet 20 mg PO DAILY Blood Pressure 07/30/23
cetirizine 10 mg tablet (Zyrtec) 10 mg PO DAILY Allergies 01/10/24
bisacodyl 10 mg rectal suppository 10 mg FL [id number] PRN constipation #50 ea 01/14/24
polyethylene glycol 3350 17 gram oral powder packet (HealthyLax) 17 g PO DAILYPRN PRN constipation #30 ea 01/14/24
sennosides 8.6 mg-docusate sodium 50 mg tablet (Stool Softener-Stimulant Laxative) 1 tab PO BIDPRN PRN constipation #20 tabs 01/14/24
Home Medication Changes
Bisacodyl, HealthyLax and Sennosides are new medications.
Hydralazine and Spironolactone are on hold -- can be resumed outpatient when appropriate (BP okay, labs okay, outpatient physicians say okay to resume)
Pending Results: Yes
Additional Pending Results:
Final microbiology results
Total time spent discharging patient (in min): 39
--- NOTE | 2024-01-14 14:13 | CM ---
CM following re: discharge planning.
Reviewed pt's chart, met with pt this morning.
Pt stated she was told by that she will be discharged today. IMM reviewed, placed on chart, pt has a copy.
Per CM note, a plan is for pt to go to [facility].
CM spoke to [facility] corporate safety director and she confirmed the do have a bed available today and pt is accepted for admission today and an auth requested.
CM called [facility], spoke to bilingual case manager Abby and based on pt's clinical pt is approved for SNF level of care at [facility] for 6 initial days, starting today 01/14/24 till 01/19/24 with NRD and LCD 01/19/24. For review: [phone]. Auth: [id number].
Auth info provided to [facility] corporate safety director and she is awre of having a wheelchair to the pt at the [facility].
Pt stated she preferred her daughter will transport her and she will be here at 4:30 p.m.
Discharge order noted.
[facility] nursing report: [phone]
Discharge instructions fax: [phone]
D/C plan: [facility]. Daughter to transport.
[2024-01-14 15:00] VITALS: BP 127/67
--- NOTE | 2024-01-21 10:21 | W.DCSUMMARY ---
Discharge Summary
Discharge Data
Date of Admission: 01/10/24
Date of Discharge: 01/14/24
Total time spent discharging patient (in min): 39
-
Pending Results: Yes
Additional Pending Results:
Final microbiology results
Hospital Course
78-year-old female with past medical history of paroxysmal A-fib/atrial flutter, HTN, HLD, CKD 4 hypothyroidism, sleep apnea uses nasal CPAP, GERD, hiatal hernia, fibromyalgia, osteoarthritis, breast cancer with left radical mastectomy, thyroid
cancer status post thyroidectomy, anxiety, depression, [place] and LBBB presented after
dropping garden blanca on her anterior foot. She was seen at urgent care the day before, and had suture placed to the area of the laceration and sent to the emergency room via ambulance due to uncontrolled bleeding. While in the emergency room she
was found to have a hematoma formed bleeding resolved and the patient was given a tetanus/Adacel shot. She reportedly had a syncopal episode that was attributed to vasovagal episode secondary to bleeding. Patient was treated in the ER and went home,
but came back after noticing uncontrolled bleeding. Podiatry was consulted, and on January 10, 2024, patient had an 'I and D of hematoma as well as ligation and management of bleeding to the right foot' for traumatic laceration, right foot with injury
to 1st dorsal metatarsal artery and right foot hematoma. Patient's Eliquis continued to be held briefly and 1 unit of blood transfused due to low hemoglobin. Following transfusion, hemoglobin improved and Eliquis was able to be resumed, and
hemoglobin remained stable overall. Patient was continued on broad spectrum antibiotics, Infectious Disease specialist was consulted, later wound infection was ruled out after cultures from the operating room showed only 2 colonies of CoNS bacteria
(skin ermias); therefore antibiotics were able to be discontinued. Patient's hydralazine was held due to lower blood pressures, but some her other antihypertensives were continued. Patient was stable for discharge with close outpatient follow-up.
Discharge Plan
-
Patient Disposition: [facility]/SNF
Discharge Diagnosis/Procedures: #Right foot hematoma secondary to traumatic laceration with garden blanca
#History of plates and hardware in right first metatarsal status post ligation of vessel and hematoma evacuation - both on the right foot
#Right first MTP prosthesis
#A-fib/atrial flutter-paroxysmal
#Acute blood loss anemia
#Vasovagal syncope
#Chronic hyponatremia
#Chronic Kidney Disease stage 4
#Hypertension
#Hyperlipidemia
#Gastroesophageal Reflux Disease
#Hiatal hernia
#Sleep apnea
#Hypothyroidism
#Thyroid cancer status post thyroidectomy
#Anxiety/depression
#Seasonal allergies
#Obesity due to excess calorie consumption
#FRANCES
#Fibromyalgia
#Osteoarthritis
#History ofbreast cancer with left radical mastectomy
Condition: Good
Diet: Low Fat and Low Cholesterol
Activity: Other activity
Additional Activity: -Limited weight-bearing of the right foot for transfers and up to 100 feet for now.
-Post op shoe
Driving Restrictions: No driving
Blood Work: Needs CBC and CMP and Mag within 2-4 days
Other Services: PT and OT
Referrals:
Yvonne George MD [Family Provider] - in less than 1 week
Aishwarya Hernandez DPM [Active] - in one day
Additional Discharge Medication Instructions: Bisacodyl, HealthyLax and Sennosides are new medications.
Hydralazine and Spironolactone are on hold -- can be resumed outpatient when appropriate (BP okay, labs okay, outpatient physicians say okay to resume)
Prescriptions:
New
bisacodyl 10 mg Suppository
10 mg CA [id number] PRN (Reason: constipation) Qty: 50 0RF
polyethylene glycol 3350 [HealthyLax] 17 gram Powder In Packet
17 g PO DAILYPRN PRN (Reason: constipation) Qty: 30 0RF
sennosides-docusate sodium [Stool Softener-Stimulant Laxat] 8.6-50 mg Tablet
1 tab PO BIDPRN PRN (Reason: constipation) Qty: 20 0RF
Continued
Eliquis 5 MG tablet
5 mg PO BID Qty: 60 11RF
simvastatin 40 MG tablet
40 mg PO Q48H@1700
escitalopram oxalate 20 MG tablet
30 mg PO HS
levothyroxine 100 mcg Tablet
100 mcg PO DAILY
diltiazem HCl 120 mg Capsule,Extended Release 24 Hr
120 mg PO HS
sodium bicarbonate 650 mg Tablet
1,300 mg PO BID
olmesartan 20 mg Tablet
20 mg PO DAILY
dofetilide [Tikosyn] 125 mcg capsule
125 mcg PO BID
cetirizine [Zyrtec] 10 mg Tablet
10 mg PO DAILY
Held
spironolactone 50 mg Tablet
50 mg PO DAILY
Hold Instructions: Resume on 01/28/24. Do not resume this medication until and unless your outpatient physicians say it is okay to resume this medication.
hydralazine 50 mg Tablet
50 mg PO BID
Hold Instructions: Resume on 01/28/24. Do not resume this medication until your outpatient physicians say it is okay to do so.
Discharge Orders:
Discharge Patient (As Directed); Ordered 01/14/24
Ordered By: Shilo Marcelo
Discharge Date and Time
Discharge Date/Time: 01/14/24 17:01
Print Language: ROMANSH
== END 2024-01-14 17:01 | DRG 908 ==
LOC: 2 SOUTH 17:43
PROVIDERS: Clinical Nurse Specialist Family Health; Nurse Practitioner Family; ADMITTING PHYSICIAN Hospitalist; ATTENDING PHYSICIAN Hospitalist; CONSULT PHYSICIAN Internal Medicine Infectious Disease; CONSULT PHYSICIAN Podiatrist Foot & Ankle Surgery; EMERGENCY PHYSICIAN Emergency Medicine; FAMILY PHYSICIAN Family Medicine
PROC: 0JCQ0ZZ Extirpation of Matter from Right Foot Subcutaneous Tissue and Fascia, Open Approach (ICD-10-PCS; 2024-01-10)
PROC: 04L Lower Arteries, Occlusion (ICD-10-PCS; 2024-01-10)
PROC: 30233N1 Transfusion of Nonautologous Red Blood Cells into Peripheral Vein, Percutaneous Approach (ICD-10-PCS; 2024-01-11)
PROC: 5A09357 Assistance with Respiratory Ventilation, Less than 24 Consecutive Hours, Continuous Positive Airway Pressure (ICD-10-PCS; 2024-01-11)
DX: S95.011A Laceration of dorsal artery of right foot, initial encounter (principal); D62 Acute posthemorrhagic anemia; N18.4 Chronic kidney disease, stage 4 (severe); I48.92 Unspecified atrial flutter; D68.32 Hemorrhagic disorder due to extrinsic circulating anticoagulants; E87.1 Hypo-osmolality and hyponatremia; S91.311A Laceration without foreign body, right foot, initial encounter; W27.1XXA Contact with garden tool, initial encounter; Y93.H2 Activity, gardening and landscaping; Y92.007 Garden or yard of unspecified non-institutional (private) residence as the place of occurrence of the external cause; I48.0 Paroxysmal atrial fibrillation; S90.31XA Contusion of right foot, initial encounter; F41.9 Anxiety disorder, unspecified; F32.A Depression, unspecified; E78.00 Pure hypercholesterolemia, unspecified; E89.0 Postprocedural hypothyroidism; I44.7 Left bundle-branch block, unspecified; K21.9 Gastro-esophageal reflux disease without esophagitis; K44.9 Diaphragmatic hernia without obstruction or gangrene; M79.7 Fibromyalgia; M19.90 Unspecified osteoarthritis, unspecified site; E66.09 Other obesity due to excess calories; I12.9 Hypertensive chronic kidney disease with stage 1 through stage 4 chronic kidney disease, or unspecified chronic kidney disease; R55 Syncope and collapse; D72.829 Elevated white blood cell count, unspecified; G47.33 Obstructive sleep apnea (adult) (pediatric); Z66 Do not resuscitate; Z79.01 Long term (current) use of anticoagulants; Z90.49 Acquired absence of other specified parts of digestive tract; Z79.890 Hormone replacement therapy; Z79.51 Long term (current) use of inhaled steroids; Z85.3 Personal history of malignant neoplasm of breast; Z85.850 Personal history of malignant neoplasm of thyroid; Z90.12 Acquired absence of left breast and nipple; Z88.5 Allergy status to narcotic agent; Z88.8 Allergy status to other drugs, medicaments and biological substances; Z68.32 Body mass index [BMI] 32.0-32.9, adult; Z88.0 Allergy status to penicillin
CPT/HCPCS: 74018; 80048; 80053; 80202; 82728; 83540; 83550; 85014; 85018; 85025; 85027; 85652; 86140; 86850; 86900; 86901; 86920; 87070; 87075; 87147; 87205; 93005; 97116; 97162; 97166; 97530; 97535; 99285; P9016

== ENCOUNTER → 2024-04-29 10:58 | Outpatient (REF) | payer OTHER, SELFPAY | LOC: PAVMRI 10:58 | PROVIDERS: ATTENDING PHYSICIAN Specialist | DX: N28.1 Cyst of kidney, acquired (principal); I10 Essential (primary) hypertension; R80.9 Proteinuria, unspecified; N20.0 Calculus of kidney | CPT/HCPCS: 74183; A9575 ==

== ENCOUNTER 2024-08-22 17:14 | Emergency (ER) | payer OTHER, SELFPAY ==
[2024-08-22] VITALS (9 sets, daily range): BP systolic 91–131; BP diastolic 62–88; BMI 30.4
[2024-08-22 18:22] LABS: Hematocrit 35.1 % (37.0-47.0); Hemoglobin 12.1 g/dL (12.0-16.0); Mean Corp Hgb Conc. 34.5 g/dL (33.0-37.0); Mean Corpuscular Hgb 30.3 pg (27.0-31.0); Mean Platelet Volume 9.5 fL (7.4-10.4); Platelet Count 345 10^3/uL (130-400); Red Blood Cell Count 3.99 10^6/uL (4.20-5.40); Red Cell Dist. Width 14.2 % (11.5-14.5); White Blood Cell Count 9.5 10^3/uL (4.8-10.8)
--- NOTE | 2024-08-22 18:27 | ED.GENMED ---
History of Present Illness
General
Chief Complaint: Heart Rate Problem
Source: patient
Exam Limitations: none
Time Seen by Provider: 08/22/24 17:46
Nursing documentation reviewed up to this point in time: agreed with
History of Present Illness
History of Present Illness:
79-year-old female with history as documented notable for A-fib on Eliquis presents to the ER for evaluation of palpitations and atrial fibrillation. Patient reports symptoms started 08/16/2025 and have been constant since that time. She says that
she took extra dose of ill diltiazem at the advisement of her apartment rental agent but symptoms did not resolve. Today she felt symptoms were worsening and called her apartment rental agent (Dr. aMne Freed) and was referred to the ER for cardioversion. She
reports primarily palpitations also reports some mild fatigue and shortness of breath. She says she has some mild lightheadedness with positional changes. She denies any chest pain. She denies any swelling in the legs. She denies any other
complaints. She is on Eliquis and compliant without any missed doses. She says that her last cardioversion was in 2021.
Past History
Past History
ED Past Medical History: Arrthythmia (Atrial fib), HTN, Hypercholesterolemia and Hypothyroidism
ED Past Surgical History: Appendectomy, Cholecystectomy and Gynecological (Hysterectomy)
Social History
Tobacco: Non-smoker
Alcohol: Occasional
Drug: None
Personal:
Living: alone
Employment: Other
Family History
Family History: Other
Review of Systems
Review of Systems
All Other Systems: ROS reviewed and negative except as documented in HPI and ROS
Constitutional: Reports fatigue; Denies fever
Respiratory: Reports trouble breathing; Denies cough
Cardiac: Reports palpitations; Denies chest pain or syncope
ABD/GI: Denies abdominal pain, nausea or vomiting
: Denies flank pain
Musculoskeletal: Denies edema, neck pain or back pain
Neurological: Reports dizzy; Denies headache
Phy Exam
Physical Exam
Physical Exam:
General: Awake, alert, oriented x3; no acute distress
Head: Normocephalic, atraumatic
Eyes: Conjunctiva normal
Throat: Airway intact, handling secretions
Neck: Trachea midline, no JVD
Lungs: Clear to auscultation bilaterally, no wheezing, rales, rhonchi
Heart: Tachycardia with irregularly irregular rhythm, no murmurs, gallops, or rubs
Neuro: No gross deficits
Extremities: No edema in extremities, equal pulses in all extremities
Scores
Heart Failure Risk
Heart Failure Risk Score: Not Applicable
Heart Score for Chest Pain Patients
STEMI patient?: Not applicable
Withdrawal Assessment of Alcohol
Withdrawal Assessment Completed?: Not applicable
Course
Orders/Labs/Results
Orders:
Orders
08/22/24 17:15
ECG [Electrocardiogram (*1)] Urgent
Reason for Study: Tachycardia
EKG- Treatment ONCE
08/22/24 17:58
Complete Blood Count/With Diff Urgent
Comprehensive Metabolic Panel Urgent
Free T4 Urgent
TSH Reflex To Free T4 Urgent
08/22/24 18:26
Propofol [Diprivan] 20 ml .ROUTE .STK-MED
08/22/24 18:39
Ondansetron Injectable [Zofran] 4 mg .ROUTE .STK-MED ONE
08/22/24 18:46
Electrocardiogram (*1) Urgent
Reason for Study: Tachycardia
EKG- Treatment ONCE
08/22/24 18:56
Ondansetron Injectable [Zofran] 4 mg IV NOW STA
Abnormal Lab Results
08/22/24
17:58
RBC 3.99 L 10^6/uL
(4.20-5.40)
Hct 35.1 L %
(37.0-47.0)
Absolute Lymphs (auto) 5.3 H 10^3/uL
(1.2-3.4)
Absolute Monos (auto) 0.9 H 10^3/uL
(0.1-0.6)
Neutrophils % 32.6 L %
(42.2-75.2)
Lymphocytes % 55.5 H %
(20.5-51.1)
Monocytes % 9.5 H %
(1.7-9.3)
Carbon Dioxide 20 L mmol/L
(22-30)
BUN 39 H mg/dl
(7-17)
Creatinine 2.0 H mg/dL
(0.6-1.0)
Calcium 10.6 H mg/dl
(8.4-10.2)
TSH (Reflex) 0.34 L uIU/ml
(0.47-4.68)
08/22/24 17:58
08/22/24 17:58
Vital Signs
Initial and Last Documented VS:
Initial Vital Signs
Temp Pulse Resp BP Pulse Ox
37.1 C 120 18 109/72 99
08/22/24 17:26 08/22/24 17:26 08/22/24 17:26 08/22/24 17:26 08/22/24 17:26
Last Documented Vital Signs
Temp Pulse Resp BP Pulse Ox
36.5 C 74 22 131/74 98
08/22/24 19:30 08/22/24 19:30 08/22/24 19:30 08/22/24 19:30 08/22/24 19:30
Procedures
Moderate Sedation
ASA Risk Score: Class II
Chart and allergies reviewed: Yes
Consent for anesthesia obtained: Yes
Time out completed (validating right patient & procedure): Yes
Moderate Sedation Start Time(when first medication is given): 18:41
History of difficult intubation: No
Airway free of obstruction: Yes
Patient has a gag reflex: Yes
Patient is able to open mouth: Yes
Patient has no dentures: Yes
Patient has no loose teeth: Yes
Medication administered by Provider during Moderate Sedation: IV Propofol (mg)
Total dose administered: 50
Time drug administered: 18:41
Moderate Sedation Procedure End Time: 18:51
Cardioversion
Indication:: Afib
Performed by:: Braden Overton MD
Synchronized?: Yes
Energy Used: 200 joules
Number of attempts: 1
Successful?: Yes
MDM/Problems Addressed
Differential Diagnosis Includes:
Symptomatic A-fib
MDM/Problems Addressed:
79-year-old female presents to the emergency room for evaluation of palpitations and tachycardia consistent with her typical A-fib symptoms. Referred to ED by apartment rental agent for consideration for cardioversion. She is on Eliquis and compliant. She
rashes tachycardic heart rate in the 120s. Normotensive. Exam as above. She is reasonable candidate for elective ED cardioversion given that she is fully anticoagulated. Labs sent off and unremarkable. Case discussed with cardiology: Confirmed
recommendation for trial of ED cardioversion. Patient is agreeable with this plan. Will proceed with procedure�consent filed in the medical record.
Patient successfully cardioverted as documented procedure note. Symptoms resolved with cardioversion. Heart rate in the 70s sinus rhythm on repeat EKG. Will monitor after cardioversion for a brief period.
Patient awake alert ambulatory and asymptomatic on reassessment after observation. Stable for discharge at this point. Follow-up with cardiology as an outpatient. All questions answered.
Chronic conditions affecting care:
Atrial fibrillation
*Pulse Oximetry
Patient hypoxic: no
*EKG
Interpreted by ED Provider?: Yes
Heart Rate: 100
Rate: tachycardiac
Rhythm: a-fib
[place]: left axis deviation
QRS Pattern: left bundle branch block
Ischemia: non-specific ST changes
*Critical Care Note
Total Time (30-74mins, 75-104mins- exclusive of procedures): Not Applicable
Data Reviewed
Review of Other/Old Records Reveals: Labs and Records
Source: patient, records and family
Prescriptions/Medications Considered But Not Given:
Considered diltiazem for rate control versus cardioversion
Patient Management
Discussion with other providers: Corporate Director Talent Assessment (Discussed with cardiology)
ED Attending Note
-
Portions of this chart may have been created with voice recognition software.� Occasional wrong word or��sound alike� substitutions may have occurred due to the inherent limitations of voice recognition software.
Discharge Plan
Departure
Patient Disposition: Home (Routine Discharge)
Date of Disposition: 08/22/24
Time of Disposition: 19:43
Patient with high blood pressure during this ER visit?: No
Discharge Problem:
Atrial fibrillation status post cardioversion
Instructions: Atrial Fibrillation (DC), MODERATE SEDATION ADULT
Prescriptions:
No Action
Eliquis 5 MG tablet
5 mg PO BID Qty: 60 11RF
simvastatin 40 MG tablet
40 mg PO Q48H@1700
escitalopram oxalate 20 MG tablet
30 mg PO HS
levothyroxine 100 mcg Tablet
100 mcg PO DAILY
spironolactone 50 mg Tablet
50 mg PO DAILY
diltiazem HCl 120 mg Capsule,Extended Release 24 Hr
120 mg PO HS
sodium bicarbonate 650 mg Tablet
1,300 mg PO BID
hydralazine 50 mg Tablet
50 mg PO BID
olmesartan 20 mg Tablet
20 mg PO DAILY
dofetilide [Tikosyn] 125 mcg capsule
125 mcg PO BID
cetirizine [Zyrtec] 10 mg Tablet
10 mg PO DAILY
bisacodyl 10 mg Suppository
10 mg DE [id number] PRN (Reason: constipation) Qty: 50 0RF
polyethylene glycol 3350 [HealthyLax] 17 gram Powder In Packet
17 g PO DAILYPRN PRN (Reason: constipation) Qty: 30 0RF
sennosides-docusate sodium [Stool Softener-Stimulant Laxat] 8.6-50 mg Tablet
1 tab PO BIDPRN PRN (Reason: constipation) Qty: 20 0RF
Referrals:
Gilberto Freed MD [Active] - Call in 1-3 days for appt
Activity Restrictions/Additional Instructions:
Thank you for visiting the Emergency Department at [facility].
1. Please schedule a follow up appointment as directed. Call first thing tomorrow morning to make an appointment.
2. If indicated, please take your medications as instructed and indicated on discharge paperwork.
3. If any of your symptoms do not improve, or persist, or become more severe within 6-12 hours, please return to the emergency department for further care.
4. Please return to the emergency department if you develop a headache, neck pain/stiffness, fever greater than 100.4F, chest pain, shortness of breath, persistent nausea, vomiting, slurred speech, difficulty walking, numbness/tingling, weakness,
signs of infection or any other symptoms that are worrisome to you.
Please call [phone] if you have any questions.
Interventions
Interventions:
*Risk Screen - Suicide Last Done: 08/22/24 17:26
*General Assessment Last Done: 08/22/24 17:26
*Neglect/Abuse Screening Last Done: 08/22/24 17:26
*ED COVID-19 Vaccine History Last Done: 08/22/24 18:34
ED- Cardiac Assessment Last Done: 08/22/24 18:00
ED- Pulmonary Assessment Last Done: 08/22/24 18:00
Discharge Date and Time
Print Language: BENGALI
[2024-08-22] MEDS: ZOFRAN 4 MG IV (18:40)
[2024-08-22 18:44] LABS: % Basophils 0.6 % (0-2); % Eosinophils 1.6 % (0-6); % Immature Granulocytes 0.2 % (0-0.5); % Lymphocytes 55.5 % (20.5-51.1); % Monocytes 9.5 % (1.7-9.3); % Neutrophils 32.6 % (42.2-75.2); Absolute Basophils 0.1 10^3/uL (0-0.2); Absolute Eosinophils 0.2 10^3/uL (0-0.7); Absolute Lymphocytes 5.3 10^3/uL (1.2-3.4); Absolute Monocytes 0.9 10^3/uL (0.1-0.6); Absolute Neutrophils 3.1 10^3/uL (1.4-6.5); Nucleated Red Blood Cells % 0 %
[2024-08-22 18:48] LABS: ALT (SGPT) 27 U/L (0-35); AST (SGOT) 29 U/L (14-36); Albumin 3.9 g/dl (3.5-5.0); Alkaline Phosphatase 76 U/L (38-126); Blood Urea Nitrogen 39 mg/dl (7-17); Calcium 10.6 mg/dl (8.4-10.2); Carbon Dioxide 20 mmol/L (22-30); Chloride 104 mmol/L (98-107); Estimated Creatinine Clearance 20 ml/min; Glucose 90 mg/dl (70-99); Potassium 4.6 mmol/L (3.5-5.1); Sodium 135 mmol/L (135-145); Total Bilirubin 0.4 mg/dl (0.2-1.3); Total Protein 6.7 g/dl (6.3-8.2); eGFR 25.26
[2024-08-22 19:03] LABS: TSH Reflex To Free T4 0.34 uIU/ml (0.47-4.68)
[2024-08-22 19:32] LABS: Free T4 1.76 ng/dl (0.78-2.19)
== END 2024-08-22 20:16 | disposition home or self-care (01) ==
LOC: EMR 17:14
PROVIDERS: Student in an Organized Health Care Education/Training Program; EMERGENCY PHYSICIAN Emergency Medicine
DX: I48.91 Unspecified atrial fibrillation (principal); Z79.01 Long term (current) use of anticoagulants; I10 Essential (primary) hypertension; E03.9 Hypothyroidism, unspecified; E78.00 Pure hypercholesterolemia, unspecified; Z90.49 Acquired absence of other specified parts of digestive tract; Z90.710 Acquired absence of both cervix and uterus
CPT/HCPCS: 92960; 99152; 96374; 99285; 80053; 84439; 84443; 85025; 93005

== ENCOUNTER 2024-08-31 08:13 | Day surgery (SDC) | payer OTHER, SELFPAY ==
[2024-08-31] VITALS (17 sets, daily range): BP systolic 98–138; BP diastolic 53–103; BMI 28.4
[2024-08-31 10:41] LABS: ACT-LR - POC 313 Seconds (116-155)
[2024-08-31 11:01] LABS: ACT-LR - POC 358 Seconds (116-155)
--- NOTE | 2024-08-31 11:38 | ITS.CL.ABL ---
Internet Marketing Assistant - Ablation
Ablation
Procedure Report:
ELECTROPHYSIOLOGIC STUDY AND POSSIBLE ABLATION
DATE: August 31, 2024
Primary Care Provider: Dr Tisha Alvarenga
INDICATION:
Symptomatic Atrial Fibrillation and atrial flutter. Persistent despite antiarrhythmic drug therapy, currently dofetilide.
HISTORY: See H and P.
Symptomatic AF, poorly controlled with attempted medical therapy
HAS-BLED: 2
Age
Abnormal Renal Function
CHADSVASc: 4
HTN
Age
F Gender
PRESENTING RHYTHM: atrial flutter
HISTORY: See H and P.
Symptomatic AF, poorly controlled with attempted medical therapy.
ANTIARRHYTHMIC DRUG: dofetilide
ANTICOAGULATION: apixaban
'TIME-OUT': called and confirmed.
SEDATION/ANESTHESIA: provided via the anesthesia department using general anesthesia.
PROCEDURE:
Ultrasound Guidance with real-time visualization of needle insertion and vessel patency performed by pr for femoral venous Vascular Access. Images were taken and saved for the patient's permanent record. Imaging findings typical femoral venous
anatomy. Direct visualization of needle puncture into the femoral vein was observed and recorded.
A decapolar CS catheter was placed within the CS for mapping and pacing.
AT CL is 280 ms.
Entrainment from the proximal mid and distal coronary sinus finds those size to be within the tachycardia circuit with tachycardia cycle length minus post pacing intervals ranging from 10-30 ms,
The intracardiac ultrasound catheter was positioned in the RA for continuous intracardiac ultrasound imaging.
Heparin bolus and infusion to target ACT at 300 -350 seconds was administered. Transseptal puncture was performed. This entailed advancing a sheath with dilator into the superior vena cava and withdrawing both (monitoring intracardiac ultrasound,
fluoroscopy and tip pressure) with the tip oriented toward the atrial septum. The fossa ovalis was engaged (indicated by sudden displacement of the sheath tip as well as tenting of the fossa seen on intracardiac ultrasound).
The FarSwatchcloud transseptal system was used. Left atrial catheter position was confirmed by echocardiographic imaging and fluoroscopy followed by RF delivery using the Lemon Curve system resulting in successful LA access with pressure monitoring
demonstrating LA pressure waveforms (LA mean pressure 3mm Hg). The sheath was advanced over the dilator and positioned in the left atrium.
The Mckeon Grid multipolar mapping catheter was initially positioned through the transseptal sheath for high density mapping.
Geometry and voltage mapping was performed using the Mckeon multipolar grid catheter. Ensite-X was utilized for three-dimensional electroanatomical mapping.
A 3-D map was created using Ensite-X in Voxel mode. A 3-D reconstructed CT image was compared to the 3-D Navex map to assist in anatomic evaluation, mapping and ablation.
High definition activation mapping finds double loop reentry utilizing the roof of the left atrium and rotating around both sets of pulmonary veins.
The Halalati catheter and system was used for cardiac ablation. Catheter positioning was guided and confirmed using both I.C.E. and fluoroscopy.
Initial positioning of the ablation catheter was at the dome of the left atrium towards the right superior pulmonary vein targeting the left atrial double loop reentrant arrhythmia. The first lesion delivery terminated the tachycardia. Ablation
was extended from the right superior pulmonary vein to the left superior pulmonary vein along the dome of the left atrium to complete a left atrial roof line.
Additionally, mapping demonstrated lack of posterior wall isolation and PV reconnection at the inf-sept quadrant of the RIPV. Ablation delivery at the RIPV isolated the pulmonary vein.
Additional ablation lesion set included ablation and isolation of the posterior wall of the left atrium.
After ablation, the high density mapping catheter was substituted for the ablation catheter and remapping demonstrated electrical isolation (both entrance and exit block) at each PV ostia (LSPV, LIPV, RSPV, RIPV).
Additionally mapping and pacing demonstrated electrical isolation of the entire posterior wall with both entrance and exit block.
Programmed electrical stimulation which included burst atrial pacing down to atrial ERP and delivery of atrial decremental extrastimuli down to atrial ERP failed to induce any arrhythmias.
I.C.E. :
Pre-Ablation Post-Ablation
LVEF: 55 % 55 %
WMA: none none
Pericardial effusion: none none
COMPLICATIONS:
None
SUMMARY:
- Mapping and ablation to isolate the PVs
- Additional AF ablation set after PVI.
- Mapping and ablation of second tachycardia
- 3-D Electroanatomical Mapping
- Intracardiac Ultrasound
Post ablation, I discussed today's findings and results with the patient's grandsonLemuel.
RECOMMENDATIONS:
- Observe in monitored bed.
- Maintain oral anticoagulation.
- Continue dofetilide 1.25 mg p.o. twice daily and reassess over the next 3 to 4 months. If maintaining sinus rhythm would stop dofetilide and observe for any recurrences.
- Office visit with EP JORDANA in 2-4 weeks then with me in 4 months months.
Copy to:
Dr Tisha Alvarenga
[2024-08-31] MEDS: ANESTHETIC LOZENGE 1 LOZENGE PO (12:29)
--- NOTE | 2024-08-31 17:20 | PTCARENOTE ---
Patient received from laborer laboratory. Right groin dressing is soft, ecchymotic, mildly tender. +2 pedals. SR BBB HR in the 70's, BP 131/93, family at bedside, call moscoso in reach
[2024-08-31] MEDS: ZOFRAN 4 MG IV (17:27)
--- NOTE | 2024-08-31 17:44 | PTCARENOTE ---
Patient vomiting into emesis basin. Zofran given
[2024-08-31] MEDS: APRESOLINE PO (20:29)
[2024-08-31] MEDS: SODIUM BICARBONATE PO (20:29)
[2024-08-31] MEDS: CARDIZEM CD 120 MG PO (22:58)
[2024-08-31] MEDS: TIKOSYN 125 MCG PO (22:58)
[2024-08-31] MEDS: ELIQUIS 5 MG PO (22:58)
[2024-08-31] MEDS: LEXAPRO 30 MG PO (23:01)
[2024-09-01 05:38] VITALS: BP 123/61
[2024-09-01 05:56] LABS: Hematocrit 31.3 % (37.0-47.0); Hemoglobin 11.1 g/dL (12.0-16.0); Mean Corp Hgb Conc. 35.5 g/dL (33.0-37.0); Mean Corpuscular Hgb 30.7 pg (27.0-31.0); Mean Corpuscular Volume 86.7 fL (81.0-99.0); Platelet Count 269 10^3/uL (130-400); Red Blood Cell Count 3.61 10^6/uL (4.20-5.40); Red Cell Dist. Width 13.7 % (11.5-14.5); White Blood Cell Count 11.4 10^3/uL (4.8-10.8)
--- NOTE | 2024-09-01 06:00 | PTCARENOTE ---
Pt received at change of shift. SR on tele with HR 70s-80s. R groin site c/d/i with ecchymosis noted. Pt nauseous from anesthesia at beginning of shift but states nausea has since resolved. Pt offers no complaints at this time. Ambulating
independently in room without difficulty. Can make needs known. Call moscoso within reach.
[2024-09-01] MEDS: SYNTHROID 100 MCG PO (06:16)
[2024-09-01 06:25] LABS: Blood Urea Nitrogen 37 mg/dl (7-17); Calcium 10.3 mg/dl (8.4-10.2); Carbon Dioxide 18 mmol/L (22-30); Chloride 104 mmol/L (98-107); Estimated Creatinine Clearance 22 ml/min; Glucose 123 mg/dl (70-99); Magnesium 1.5 mg/dl (1.6-2.3); Potassium 4.9 mmol/L (3.5-5.1); Sodium 132 mmol/L (135-145); eGFR 28.66
[2024-09-01 07:44] VITALS: BP 124/62
[2024-09-01] MEDS: MAGNESIUM OXIDE 500 MG PO (07:47)
[2024-09-01] MEDS: BENICAR 20 MG PO (08:07)
[2024-09-01] MEDS: ELIQUIS 5 MG PO (08:07)
[2024-09-01] MEDS: SODIUM BICARBONATE 1300 MG PO (08:07)
[2024-09-01] MEDS: APRESOLINE 50 MG PO (08:07)
[2024-09-01] MEDS: ALDACTONE 50 MG PO (08:07)
[2024-09-01] MEDS: TIKOSYN 125 MCG PO (08:07)
--- NOTE | 2024-09-01 08:46 | W.PN.CARDCBS ---
Addendum entered and electronically signed by Billy Rios MD 09/01/24 09:31:
Patient seen and examined
Agree with WHEAT WASHER note and assessment
Agree with WHEAT WASHER plan
Exam:
Bilateral groins clean dry and intact
Cor regular without murmur rubs or gallops
Lungs clear to auscultation bilaterally
Abdomen soft nontender positive bowel sounds
No extremity edema
Alert and x 3
Nonfocal neurologically
Impression:
Symptomatic PAF and Aflutter
recent DCCV 08/22/24
prior PVI 07/2019
post PVI 08/31/24
hypomagnesium
HTN
HLD
Hypothyroidism
FRANCES/CPAP
GERD
Breast Cancer post L mastectomy
Thyroid cancer post thyroidectomy
CKD4
Fibromyalgia
Anxiety/Depression
Plan:
OAC Eliquis
Mag 1.5, replete and give supplement for 5 days
Will continue her antiarrhythmic drug therapy and AV yoel therapy until outpatient evaluation with her primary delicatessen clerk
Cr stable post ablation 1.8
Activity restrictions reviewed
f/u DCA 2-4 weeks
home today
Original Note:
Today's Communication / Plan
-
post ablation stable for d/c home
Impression / Plan
-
PCP: Dr. Alvarenga
CDY: Gilberto Freed MD
Impression:
Symptomatic PAF and Aflutter
recent DCCV 08/22/24
prior PVI 07/2019
post PVI 08/31/24
hypomagnesium
HTN
HLD
Hypothyroidism
FRANCES/CPAP
GERD
Breast Cancer post L mastectomy
Thyroid cancer post thyroidectomy
CKD4
Fibromyalgia
Anxiety/Depression
Plan:
post ablation feels good
groin tender with some ecchymosis
tele SR LBBB
OAC Eliquis
Mag 1.5, replete and give supplement for 5 days
continue Tikosyn, diltiazem
Cr stable post ablation 1.8
Activity restrictions reviewed
f/u DCA 2-4 weeks
home today
Progress Note - Database Programmer Analyst
Subjective
Date of Service: September 01, 2024
denies cp, sob, groin sore
Objective
Labs:
09/01/24 05:41
09/01/24 05:41
Labs
Hgb 11.1 g/dL (12.0-16.0) L 09/01/24 05:41
Hct 31.3 % (37.0-47.0) L 09/01/24 05:41
Plt Count 269 10^3/uL (130-400) 09/01/24 05:41
Sodium 132 mmol/L (135-145) L 09/01/24 05:41
Potassium 4.9 mmol/L (3.5-5.1) 09/01/24 05:41
BUN 37 mg/dl (7-17) H 09/01/24 05:41
Creatinine 1.8 mg/dL (0.6-1.0) H 09/01/24 05:41
Glucose 123 mg/dl (70-99) H 09/01/24 05:41
Vital Signs and I&O:
Vital Signs
Temp Pulse Resp BP Pulse Ox
98.3 F 66 20 123/61 99
09/01/24 07:43 09/01/24 06:00 09/01/24 07:43 09/01/24 05:38 09/01/24 07:43
Vital Signs
Temp Pulse Resp BP Pulse Ox
98.3 F 66 20 123/61 99
09/01/24 07:43 09/01/24 06:00 09/01/24 07:43 09/01/24 05:38 09/01/24 07:43
Physical Exam
Physical Exam
NAD, AOX3
S1, S2, RRR
CTAB, non labored
SNTND bsx4
R fem site c/d/i soft, mod tender with mod ecchymosis
--- NOTE | 2024-09-01 10:01 | PTCARENOTE ---
Discharge teaching completed. Patient verbalized understanding. Grandson will drive patient home today.
--- NOTE | 2024-09-01 10:47 | W.DS.TRANS ---
DC Summary - Supervisor [employer]
-
Discharge Instructions:
Discharge Diagnosis/Procedures AFib, s/p ablation
Diet Low Cholesterol
Driving Restrictions No driving for 24 hours
Instructions:
Stand-Alone Forms: DC Instructions- Cath/EP Lab
Changes to Home Medications: Yes
Discharge Medications:
DC Medications w/original date entered in [facility]
apixaban 5 mg tablet (Eliquis) 5 mg PO BID #60 tabs 04/06/19
simvastatin 40 mg tablet 40 mg PO Q48H@1700 High cholesterol 08/30/19
escitalopram oxalate 20 mg tablet 30 mg PO HS Mental Health/Anxiety 08/13/21
levothyroxine 100 mcg tablet 100 mcg PO DAILY Thyroid 05/07/22
spironolactone 50 mg tablet 50 mg PO DAILY Blood pressure 05/07/22
diltiazem HCl 120 mg capsule,24 hr,extended release 120 mg PO HS Heart disease/condition 05/08/22
hydralazine 50 mg tablet 50 mg PO BID Blood Pressure 05/27/23
sodium bicarbonate 650 mg tablet 1,300 mg PO BID Kidney Disease 05/27/23
dofetilide 125 mcg capsule (Tikosyn) 125 mcg PO BID Arrhythmia 07/30/23
olmesartan 20 mg tablet 20 mg PO DAILY Blood Pressure 07/30/23
bisacodyl 10 mg rectal suppository 10 mg NE [id number] PRN constipation #50 ea 01/14/24
polyethylene glycol 3350 17 gram oral powder packet (HealthyLax) 17 g PO DAILYPRN PRN constipation #30 ea 01/14/24
sennosides 8.6 mg-docusate sodium 50 mg tablet (Stool Softener-Stimulant Laxative) 1 tab PO BIDPRN PRN constipation #20 tabs 01/14/24
albuterol sulfate 90 mcg/actuation aerosol inhaler 2 puff inhalation QID PRN asneeded 08/31/24
magnesium 250 mg tablet 250 mg PO DAILY #30 tabs 09/01/24
Home Medication Changes
Pending Results: No
--- NOTE | 2024-09-01 10:55 | PTCARENOTE ---
Patient escorted to main lobby with grandrichar
--- NOTE | 2024-09-01 11:04 | CM ---
Chart reviewed. Patient is independent of ADLS, lives alone in a [address], [address], 0 DME. Plan is for the patient to return home. CM to follow
== END 2024-09-01 10:56 | disposition home or self-care (01) ==
LOC: CATH 08:13
PROVIDERS: Nurse Practitioner; ATTENDING PHYSICIAN Internal Medicine Cardiovascular Disease; FAMILY PHYSICIAN Family Medicine
DX: I48.19 Other persistent atrial fibrillation (principal); I48.92 Unspecified atrial flutter; Z79.890 Hormone replacement therapy; Z79.01 Long term (current) use of anticoagulants; Z79.899 Other long term (current) drug therapy; I10 Essential (primary) hypertension; E78.00 Pure hypercholesterolemia, unspecified; E03.9 Hypothyroidism, unspecified
CPT/HCPCS: C1759; C1892; C1730; C1894; C1732; 76937; 80048; 83735; 85027; 85347; 86850; 86900; 86901; 93005; 93655; 93656; 93657; C1733; C1766

== ENCOUNTER → 2024-09-22 10:45 | Outpatient (REF) | payer OTHER, SELFPAY | LOC: RAD 10:45 | PROVIDERS: ATTENDING PHYSICIAN Nurse Practitioner; FAMILY PHYSICIAN Nurse Practitioner Family | DX: R06.02 Shortness of breath (principal); T14.8XXA Other injury of unspecified body region, initial encounter | CPT/HCPCS: 93926 ==

== ENCOUNTER → 2024-11-10 10:18 | Outpatient (REF) | payer OTHER, SELFPAY | LOC: RSP 10:18 | PROVIDERS: ATTENDING PHYSICIAN Internal Medicine Rheumatology; FAMILY PHYSICIAN Nurse Practitioner Family | DX: R06.02 Shortness of breath (principal) | CPT/HCPCS: 94727; 94729; 88738; 94060 ==

== ENCOUNTER → 2024-12-21 17:41 | Outpatient (REF) | payer OTHER, SELFPAY | LOC: RCS 17:41 | PROVIDERS: ATTENDING PHYSICIAN Specialist; FAMILY PHYSICIAN Nurse Practitioner Family | DX: R03.1 Nonspecific low blood-pressure reading (principal) | CPT/HCPCS: 93306 ==

== ENCOUNTER → 2024-12-22 08:55 | Outpatient (REF) | payer OTHER, SELFPAY ==
[2024-12-22 09:27] LABS: % Basophils 0.9 % (0-2); % Immature Granulocytes 0.3 % (0-0.5); % Monocytes 7.8 % (1.7-9.3); Absolute Basophils 0.1 10^3/uL (0-0.2); Absolute Eosinophils 0.2 10^3/uL (0-0.7); Absolute Lymphocytes 4.6 10^3/uL (1.2-3.4); Absolute Monocytes 0.8 10^3/uL (0.1-0.6); Hematocrit 37.6 % (37.0-47.0); Hemoglobin 12.7 g/dL (12.0-16.0); Mean Corp Hgb Conc. 33.8 g/dL (33.0-37.0); Mean Corpuscular Hgb 30.5 pg (27.0-31.0); Mean Corpuscular Volume 90.2 fL (81.0-99.0); Mean Platelet Volume 9.2 fL (7.4-10.4); Nucleated Red Blood Cells % 0 %; Platelet Count 336 10^3/uL (130-400); Red Blood Cell Count 4.17 10^6/uL (4.20-5.40); Red Cell Dist. Width 14.6 % (11.5-14.5); White Blood Cell Count 9.7 10^3/uL (4.8-10.8)
[2024-12-22 09:32] VITALS: BP 157/73; BP_SYST 64
[2024-12-22 09:40] LABS: INR 1.32; PT 16.9 Sec (11.4-14.6)
--- NOTE | 2024-12-22 10:00 | PTCARENOTE ---
some difficulty obtaining IV line prior to procedure/limb restriction so IV placed by VAT RN Min. Pt's medications and allergies are numerous, reviewd all before procedure-since many adverse affects noted with opioids, consulted pharmacy for
assistance in prescribing intraprocedure meds. Decision made to give IV Acetaminophen, orders placed by MAHNAZ Cuevas. Pt medicated as ordered with IV Acetaminophen and Ativan.
[2024-12-22] MEDS: OFIRMEV 100 IV (10:19)
[2024-12-22] MEDS: ATIVAN 0.25 MG IV (10:20)
[2024-12-22] MEDS: NSS (PRESERVATIVE FREE) 0.125 ML IV (10:21)
[2024-12-22 11:52] VITALS: BP 167/76; BP_SYST 61
== END ==
LOC: RADI 08:55
PROVIDERS: ATTENDING PHYSICIAN Nurse Practitioner Adult Health; FAMILY PHYSICIAN Nurse Practitioner Family; OTHER PHYSICIAN Specialist; REFERRING PHYSICIAN Physician Assistant
DX: D47.2 Monoclonal gammopathy (principal); D68.8 Other specified coagulation defects
CPT/HCPCS: 88305; 88311; 88312; 36415; 38222; 77012; 85025; 85610; 88313

== ENCOUNTER → 2025-05-01 09:14 | Outpatient (REF) | payer OTHER, SELFPAY | LOC: RAD 09:14 | PROVIDERS: ATTENDING PHYSICIAN Internal Medicine Endocrinology, Diabetes & Metabolism; FAMILY PHYSICIAN Nurse Practitioner Family | DX: C73 Malignant neoplasm of thyroid gland (principal); E21.0 Primary hyperparathyroidism | CPT/HCPCS: 76536; 78071; A9500 ==

== ENCOUNTER 2025-06-13 06:20 | Day surgery (SDC) | payer OTHER, SELFPAY ==
[2025-06-02 08:58] LABS: Hematocrit 34.7 % (37.0-47.0); Hemoglobin 11.6 g/dL (12.0-16.0); Mean Corp Hgb Conc. 33.4 g/dL (33.0-37.0); Mean Corpuscular Volume 90.1 fL (81.0-99.0); Platelet Count 298 10^3/uL (130-400); Red Cell Dist. Width 14.3 % (11.5-14.5)
[2025-06-02 09:05] LABS: INR 1.28; PT 16.2 Sec (11.4-14.6)
[2025-06-02 09:06] LABS: APTT 42.7 Sec (23.4-35.0)
[2025-06-02 09:20] LABS: ALT (SGPT) 19 U/L (0-35); AST (SGOT) 22 U/L (14-36); Albumin 4.0 g/dl (3.5-5.0); Alkaline Phosphatase 83 U/L (38-126); Blood Urea Nitrogen 44 mg/dl (7-17); Calcium 10.9 mg/dl (8.4-10.2); Carbon Dioxide 23 mmol/L (22-30); Chloride 109 mmol/L (98-107); Glucose 75 mg/dl (70-99); Potassium 5.1 mmol/L (3.5-5.1); Sodium 138 mmol/L (135-145); Total Protein 7.0 g/dl (6.3-8.2); eGFR 32.81
[2025-06-02 13:59] VITALS: BMI 27.1
--- NOTE | 2025-06-06 16:12 | PTCARENOTE ---
Allie in Dr. Montenegro's office made aware of PTT 42.7.
[2025-06-13] VITALS (16 sets, daily range): BP systolic 111–141; BP diastolic 50–66; BMI 27.1
[2025-06-13] MEDS: TYLENOL 1000 MG PO (11:49)
[2025-06-13] MEDS: NEURONTIN 300 MG PO (11:49)
[2025-06-13] MEDS: HEPARIN 5000 UNITS SC (11:49)
[2025-06-13] MEDS: EMEND 40 MG PO (11:51)
[2025-06-13] MEDS: NORMOSOL-R/PLASMALYTE-A 1000 IV (11:55)
[2025-06-13 13:01] LABS: Turbo PTH 347.2 pg/ml (14.5-75.2)
--- NOTE | 2025-06-13 13:37 | OR.RPT ---
Operative Report
Operative Report
Date of Operation: June 13, 2025
Preoperative Diagnosis: Parathyroid hyperparathyroidism - E210
Postoperative Diagnosis: Same
Surgeon: Jeremy Montenegro M.D.
Operation: Neck Exploration and Left Parathyroidectomy - 40293
Anesthesia: GET
Estimated Blood Loss: 1 cc
Drains: None
Specimen: Left neck nodule, rule out parathyroid adenoma
Complications: None
Procedure:
The patient was taken to the operating room and placed in the usual supine position. After adequate general endotracheal anesthesia was established, the patient's neck was extended, prepped, and draped in the typical sterile fashion. A 4 cm
transcervical incision was made two fingerbreadths above the sternal notch. The skin incision was made with the #15 blade, and this was taken through the skin into the subcutaneous tissue. The underlying platysma muscle was divided, and subplatysmal
flaps were created superiorly to the thyroid cartilage and inferiorly to the sternal notch. Strap muscles were identified and at the midline.
Attention was turned to the patient's right side of the neck. There was no obvious right thyroid lobe. However, a large parathyroid gland was identified. During this process, the right recurrent laryngeal nerve was identified and preserved
throughout the surgery. The first intraoperative PTH level was sent 15 minutes after, which failed to normalized. Therefore, another PTH was sent while exploring the right side of her neck, which decreased to the normal range. Therefore, we
concluded the procedure.
After obtaining adequate hemostasis, the strap muscles were reapproximated with #3-0 Vicryl in a running fashion. The platysma muscle was reapproximated with #3-0 Vicryl in an interrupted fashion, and the skin was approximated with #4-0 Monocryl in
a running subcuticular fashion. The Steri-Strips and sterile dressings were placed. The patient tolerated the procedure well. The final instrument, needle, and sponge counts were correct. The patient was extubated and transferred to the PACU.
[2025-06-13 13:52] LABS: Turbo PTH 110.3 pg/ml (14.5-75.2)
[2025-06-13 14:29] LABS: Turbo PTH 62.5 pg/ml (14.5-75.2)
[2025-06-13] MEDS: ZOFRAN 4 MG IV (15:25)
[2025-06-13] MEDS: COMPAZINE 5 MG IV (15:41)
[2025-06-13] MEDS: BENADRYL 12.5 MG IV (16:32)
[2025-06-13] MEDS: NSS (PRESERVATIVE FREE) 8 ML IV (16:41)
[2025-06-13] MEDS: PEPCID 20 MG IV (16:41)
[2025-06-13] MEDS: VALIUM INJECTION 2.5 MG IV (17:29)
== END 2025-06-13 18:41 | disposition home or self-care (01) ==
LOC: SDS 06:20
PROVIDERS: ATTENDING PHYSICIAN Surgery; FAMILY PHYSICIAN Family Medicine
DX: D35.1 Benign neoplasm of parathyroid gland (principal); E21.0 Primary hyperparathyroidism
CPT/HCPCS: 60500; 36415; 80053; 83970; 85027; 85610; 85730; 88305; 88331